=== PATIENT | male | born 1975 | race Caucasian/White ===

== ENCOUNTER 2018-07-12 12:52 | Emergency (ER) | payer BC, OTHER ==
[~2018-07-12] VITALS: Ht 177.8 cm; Wt 113.4 kg
[~2018-07-12 12:52] MED LIST: ALLP100T PO; ASPI325T32 PO; CETI10TA17 PO; DOXY100C42 PO; ESCI20TA2 PO; GMFB600T PO; HYDR1CAP2 PO; OMEG1CAP24 PO; OXYC-12 PO; SULF1TAB35 PO; SULF1TAB38 PO
--- OUTSIDE RECORDS SUMMARY | 2018-07-12 12:57 | XMS REPORT | Continuity of Care Document ---
Author Author [facility] Organization [facility] Address Unknown Phone Unavailable Allergies Active Description Code Type Severity Reaction Onset Reported/Identified Relationship to Patient Clinical Status Yes NO KNOWN DRUG ALLERGIES UNKNOWN NO KNOWN DRUG ALLERG Yes No Known Drug Allergies [id number] Drug Allergy Unknown N/A 01/19/2010 Medications There is no data. 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 Results Test Result Range Thyroid Stimulating Hormone - 11/29/17 10:45 TSH 1.35 mIU/mL 0.32-5.00 Lipid Panel - 11/29/17 10:45 C/HDL 7.5 3.7-6.7 Cholesterol 307 mg/dL 100-240 HDL 41 mg/dL 30-85 LDL-Calculated 201 mg/dL 0-100 Trig 327 mg/dL 35-160 VLDL 65 mg/dL 0-42 Encounters ACCT No. Visit Date/Time Discharge Status Pt. Type Provider Facility Loc./Unit Complaint [id number] 03/25/2014 16:23:00 03/25/2014 18:50:00 DIS Emergency MAITE CHAVEZ [facility] ER POSS SURGICAL INFECTION ON L LEG [id number] 06/17/2012 10:04:00 06/17/2012 23:59:59 CLS Outpatient [id number] 11/29/2017 10:44:00 11/29/2017 23:59:00 DIS Outpatient Louise Sorenson [id number] 11/29/2017 10:39:00 11/29/2017 23:59:00 DIS Outpatient Louise Sorenson
[2018-07-12 13:50] LABS: BILIRUBIN,URINE NEGATIVE (NEGATIVE); CLARITY,URINE CLEAR; COLOR,URINE YELLOW; GLUCOSE, URINE (UA) NEGATIVE (NEGATIVE); KETONES,URINE NEGATIVE (NEGATIVE); LEUKOCYTE ESTERASE ,URINE 1+ (NEGATIVE); NITRITE,URINE NEGATIVE (NEGATIVE); PH,URINE 6 (5-9); PROTEIN,URINE 2+ (NEGATIVE); UROBILINOGEN,URINE NORMAL (NORMAL)
[2018-07-12 13:59] LABS: BACTERIA,URINE NEGATIVE /HPF; SQUAMOUS EPITHELIAL CELL,UR RARE /HPF
[2018-07-12] MEDS ORDERED: ONDANSETRON 4 MG/2 ML (SDV) Z0FRAN IVP ONE (14:00)
[2018-07-12] MEDS ORDERED: NS IV 1000 ML 1,000 ML IV SCH (14:00)
[2018-07-12] MEDS ORDERED: KETOROLAC 30 MG/ML VIAL IVP ONE (14:00)
--- NOTE | 2018-07-12 14:23 | ED GU-Male ---
General Chief Complaint: Abdominal/GI Problems Stated Complaint: KIDNEY STONES History of Present Illness Date Seen by Provider: Jul 12, 2018 Time Seen by Provider: 14:15 Initial Comments 42-year-old male presents for possible left kidney stones. He's had these in the past approximate 5 years ago and required cystoscopy for removal by Dr. Lynn. He reports mild left low back pain. He also has associated nausea , no vomiting. Timing/Duration: this morning Severity/Quality: mild Location: left flank Radiation: none Activities at Onset: none Prior Genitourinary Problems: similar symptoms Associated Symptoms: lower back pain, nausea/vomiting Allergies and Home Medications Allergies Coded Allergies: No Known Drug Allergies (Unverified , 07/12/18) Home Medications Aspirin 325 Mg Tablet.dr, 325 MG PO DAILY, (Reported) Cetirizine Hcl 10 Mg Tablet, 10 MG PO DAILY, (Reported) Ciprofloxacin HCl 500 Mg Tablet, 500 MG PO BID Prescribed by: LARRY TURPIN on 07/12/18 1501 Doxycycline Monohydrate 100 Mg Capsule, 100 MG PO BID Prescribed by: MAITE WRIGHT on 03/25/141821 Escitalopram Oxalate 20 Mg Tablet, 1 EACH PO DAILY, (Reported) Hydrocodone Bit/Acetaminophen 1 Tab Tab, 1-2 EACH PO Q6H PRN for PAIN-MODERATE Prescribed by: LARRY TURPIN on 07/12/18 1501 [place]-3 Fatty Acids/Fish Oil 1 Each Capsule.dr, 1 EACH PO DAILY, (Reported) Oxycodone Hcl/Acetaminophen 1 Each Tablet, 1 EACH PO Q4-6H PRN PRN for PAIN, ( Reported) Sulfamethoxazole/Trimethoprim 1 Each Tablet, 1 TAB PO BID Prescribed by: MAITE WRIGHT on 03/25/141821 Patient Home Medication List Home Medication List Reviewed: Yes Review of Systems Review of Systems Constitutional: no symptoms reported, see HPI Genitourinary: flank pain (left) All Other Systemes Reviewed Negative Unless Noted: Yes Past Drworvd-Hctiod-Mfeocq Hx Past Med/Social Hx: Reviewed Nursing Past Med/Soc Hx Patient Social History Recent Foreign Travel: No Contact w/Someone Who Travel: No Past Medical History Reproductive Disorders: No Sexually Transmitted Disease: No Physical Exam Vital Signs Vital Signs - First Documented 07/12/18 13:35 Temp 98.5 Pulse 77 Resp 16 B/P (MAP) 140/91 (107) Pulse Ox 98 Capillary Refill : Height, Weight, BMI Height: 5'9" Weight: 200lbs. oz. 90.573615zu; BMI Method: General Appearance: WD/WN, no apparent distress Cardiovascular: normal peripheral pulses, regular rate, rhythm Respiratory: chest non-tender, lungs clear, normal breath sounds Gastrointestinal: normal bowel sounds, non tender, soft Back: normal inspection, no vertebral tenderness, CVA tenderness (L) Neurologic/Psychiatric: no motor/sensory deficits, alert, normal mood/affect, oriented x 3 Skin: normal color, warm/dry Progress/Results/Core Measures Suspected Sepsis SIRS Temperature: Pulse: Respiratory Rate: Laboratory Tests 07/12/18 14:43: White Blood Count 11.4H Blood Pressure / Mean: Laboratory Tests 07/12/18 14:43: Creatinine 0.87, Platelet Count 220, Total Bilirubin 1.2H Results/Orders Lab Results Laboratory Tests Test 07/12/18 13:35 07/12/18 14:43 Range/Units Urine Color YELLOW Urine Clarity CLEAR Urine pH 6 5-9 Urine Specific [place] 1.010 L 1.016-1.022 Urine Protein 2+ H NEGATIVE Urine Glucose (UA) NEGATIVE NEGATIVE Urine Ketones NEGATIVE NEGATIVE Urine Nitrite NEGATIVE NEGATIVE Urine Bilirubin NEGATIVE NEGATIVE Urine Urobilinogen NORMAL NORMAL MG/DL Urine Leukocyte Esterase 1+ H NEGATIVE Urine RBC (Auto) 5+ H NEGATIVE Urine RBC 10-25 H /HPF Urine WBC 2-5 /HPF Urine Squamous Epithelial Cells RARE /HPF Urine Crystals NONE /LPF Urine Bacteria NEGATIVE /HPF Urine Casts NONE /LPF Urine Mucus NEGATIVE /LPF Urine Culture Indicated NO White Blood Count 11.4 H 4.3-11.0 10^3/uL Red Blood Count 4.80 4.35-5.85 10^6/uL Hemoglobin 13.9 13.3-17.7 G/DL Hematocrit 40 40-54 % Mean Corpuscular Volume 84 80-99 FL Mean Corpuscular Hemoglobin 29 25-34 PG Mean Corpuscular Hemoglobin Concent 35 32-36 G/DL Red Cell Distribution Width 13.2 10.0-14.5 % Platelet Count 220 130-400 10^3/uL Mean Platelet Volume 8.9 7.4-10.4 FL Neutrophils (%) (Auto) 84 H 42-75 % Lymphocytes (%) (Auto) 10 L 12-44 % Monocytes (%) (Auto) 6 0-12 % Eosinophils (%) (Auto) 0 0-10 % Basophils (%) (Auto) 0 0-10 % Neutrophils # (Auto) 9.5 H 1.8-7.8 X 10^3 Lymphocytes # (Auto) 1.1 1.0-4.0 X 10^3 Monocytes # (Auto) 0.7 0.0-1.0 X 10^3 Eosinophils # (Auto) 0.0 0.0-0.3 10^3/uL Basophils # (Auto) 0.0 0.0-0.1 10^3/uL Sodium Level 137 135-145 MMOL/L Potassium Level 3.9 3.6-5.0 MMOL/L Chloride Level 104 98-107 MMOL/L Carbon Dioxide Level 20 L 21-32 MMOL/L Anion Gap 13 5-14 MMOL/L Blood Urea Nitrogen 13 7-18 MG/DL Creatinine 0.87 0.60-1.30 MG/DL Estimat Glomerular Filtration Rate > 60 BUN/Creatinine Ratio 15 Glucose Level 105 70-105 MG/DL Calcium Level 9.4 8.5-10.1 MG/DL Corrected Calcium 9.1 8.5-10.1 MG/DL Total Bilirubin 1.2 H 0.1-1.0 MG/DL Aspartate Amino Transf (AST/SGOT) 44 H 5-34 U/L Alanine Aminotransferase (ALT/SGPT) 72 H 0-55 U/L Alkaline Phosphatase 52 40-136 U/L Total Protein 7.3 6.4-8.2 GM/DL Albumin 4.4 3.2-4.5 GM/DL My Orders Orders - LARRY TURPIN Ua Culture If Indicated (07/12/18 13:03) Cbc With Automated Diff (07/12/18 14:30) Comprehensive Metabolic Panel (07/12/18 14:30) Medications Given in ED Current Medications Medications Dose Ordered Sig/Yon Route Start Time Stop Time Status Last Admin Dose Admin Ketorolac Tromethamine 30 mg ONCE ONCE IVP 07/12/18 14:00 07/12/18 14:01 DC 07/12/18 13:56 30 MG Ondansetron HCl 4 mg ONCE ONCE IVP 07/12/18 14:00 07/12/18 14:01 DC 11/18/18 13:56 4 MG Vital Signs/I&O 07/12/18 07/12/18 13:35 15:27 Temp 98.5 Pulse 77 76 Resp 16 16 B/P (MAP) 140/91 (107) 136/73 (94) Pulse Ox 98 99 Capillary Refill : Progress Note : Time: 14:15 Progress Note Initial evaluation completed. Zofran 4 mg IV, normal saline 1 L IV, Zofran 30 mg IV for pain. Will obtain UA, CBC and CMP. 1415 patient reports pain to be resolved, no further nausea and vomiting. Discussed patient with Dr. Lang, recommended no indication for x-ray at this time. Will manage conservatively with home precautions and follow-up with urology. 1500 lab results reviewed with patient. Discharge instructions and return precautions discussed. Departure Impression Primary Impression: Urolithiasis Qualified Codes: N21.8 - Other lower urinary tract calculus Disposition: HOME, SELF-CARE Condition: Improved Departure-Patient Inst. Decision time for Depature: 15:00 Referrals: CAROLINA SERRATO MD (PCP/Family) Primary Care Physician Patient Instructions: Kidney Stones (DC) Add. Discharge Instructions: Increase water intake. Take ibuprofen 600 mg every 8 hours. Take hydrocodone as needed every 6 hours for severe pain. Take Cipro as prescribed. Call for follow-up appointment with Dr. Lynn. Return to emergency department for pain not controlled with previously prescribed medications, inability urinate, fever greater than 101, or new problems. All discharge instructions reviewed with patient and/or family. Voiced understanding. Scripts Hydrocodone Bit/Acetaminophen (Hydrocodone/Acetaminophen 5/325mg Tablet) 1 Tab Tab 1-2 EACH PO Q6H PRN for PAIN-MODERATE MDD 10, #20 TAB 0 Refills Prov: LARRY TURPIN 07/12/18 Ciprofloxacin HCl (Cipro) 500 Mg Tablet 500 MG PO BID, #10 TAB 0 Refills Prov: LARRY TURPIN 07/12/18 Copy Copies To 1: THUY LYNN MD, AMY ARNP Jul 12, 2018 14:23
[2018-07-12 14:49] LABS: BASOPHILS % (AUTO) 0 % (0-10); EOSINOPHILS % (AUTO) 0 % (0-10); HEMATOCRIT 40 % (40-54); HEMOGLOBIN 13.9 G/DL (13.3-17.7); LYMPHOCYTES # (AUTO) 1.1 X 10^3 (1.0-4.0); LYMPHOCYTES % (AUTO) 10 % (12-44); MEAN CORPUSCULAR HEMOGLOBIN 29 PG (25-34); MEAN CORPUSCULAR HGB CONC 35 G/DL (32-36); MEAN CORPUSCULAR VOLUME 84 FL (80-99); MEAN PLATELET VOLUME 8.9 FL (7.4-10.4); MONOCYTES # (AUTO) 0.7 X 10^3 (0.0-1.0); MONOCYTES % (AUTO) 6 % (0-12); NEUTROPHILS # (AUTO) 9.5 X 10^3 (1.8-7.8); NEUTROPHILS % (AUTO) 84 % (42-75); PLATELET COUNT 220 10^3/uL (130-400); RED CELL DISTRIBUTION WIDTH 13.2 % (10.0-14.5); WHITE BLOOD COUNT 11.4 10^3/uL (4.3-11.0)
[2018-07-12] MEDS ORDERED: ACHD5005 PO (15:01)
[2018-07-12] MEDS ORDERED: CIPR-225 PO (15:01)
[2018-07-12 15:07] LABS: ALANINE AMINOTRANSFERASE 72 U/L (0-55); ALBUMIN 4.4 GM/DL (3.2-4.5); ALKALINE PHOSPHATASE 52 U/L (40-136); BILIRUBIN,TOTAL 1.2 MG/DL (0.1-1.0); BUN/CREATININE RATIO 15; CALCIUM 9.4 MG/DL (8.5-10.1); CARBON DIOXIDE 20 MMOL/L (21-32); CHLORIDE 104 MMOL/L (98-107); CREATININE SERUM 0.87 MG/DL (0.60-1.30); GFR ESTIMATED > 60; GLUCOSE 105 MG/DL (70-105); POTASSIUM 3.9 MMOL/L (3.6-5.0); SODIUM 137 MMOL/L (135-145); TOTAL PROTEIN 7.3 GM/DL (6.4-8.2)
[2018-07-12 15:27] VITALS: BP 136/73
[2018-07-13] MEDS ORDERED: ATOR40TA PO (15:13)
[2018-07-13] MEDS ORDERED: SERT50TA9 PO (15:13)
[2018-07-13] MEDS ORDERED: CETI10TA17 PO (15:13)
[2018-07-13] MEDS ORDERED: ALLO300T2 PO (15:13)
== END 2018-07-12 15:22 | disposition home or self-care (01) ==
LOC: EDUNIT# 12:52 → ER 12:53
DX: N20.9 Urinary calculus, unspecified (principal); Z79.82 Long term (current) use of aspirin
CPT/HCPCS: 36415; 80053; 81000; 85025

== ENCOUNTER 2018-07-13 14:54 | Outpatient (CLI) | payer BC ==
[~2018-07-13] VITALS: Ht 177.8 cm; Wt 113.4 kg
[~2018-07-13 14:54] MED LIST changes: -ALLO300T2 PO; -ATOR40TA PO; -HYDR-3870 PO; -NITR-65 PO; -SERT50TA9 PO; -TAMS0.4C98 PO
[2018-07-13] MEDS ORDERED: CETI10TA17 PO (15:13)
[2018-07-13] MEDS ORDERED: ALLO300T2 PO (15:13)
[2018-07-13] MEDS ORDERED: ATOR40TA PO (15:13)
[2018-07-13] MEDS ORDERED: SERT50TA9 PO (15:13)
[2018-07-14] MEDS ORDERED: NITR-65 PO (12:49)
[2018-07-14] MEDS ORDERED: HYDR-3870 PO (12:50)
[2018-07-14] MEDS ORDERED: TAMS0.4C98 PO (12:50)
== END 2018-07-13 15:22 | disposition home or self-care (01) ==
LOC: PREOP 14:54
PROVIDERS: ATTEND Urology
DX: Z01.818 Encounter for other preprocedural examination (principal)

== ENCOUNTER → 2018-07-13 | Outpatient (CLI) | payer BC ==
[~2018-07-13] MED LIST changes: +ACHD5005 PO; +ALLO300T2 PO; +ATOR40TA PO; +CIPR-225 PO; +HYDR-3870 PO; +NITR-65 PO; +SERT50TA9 PO; +TAMS0.4C98 PO
--- NOTE | 2018-07-13 10:34 | Diagnostic Imaging Report ---
PROCEDURE: CT urinary tract, rule out kidney stone. TECHNIQUE: Multiple contiguous axial images were obtained through the abdomen and pelvis without the use of intravenous contrast. INDICATION: History of kidney stones, left posterior flank pain. Hematuria. COMPARISON: None. FINDINGS: No focal consolidation is seen in the lung bases. There is calcified granuloma in the lateral right lower lobe. No pleural effusion is seen. There is no pericardial effusion. The heart is normal in size. There is decreased attenuation of the liver, consistent with fatty infiltration. Cholecystectomy clips are noted. The pancreas appears normal. The spleen is normal. The adrenal glands appear normal. There is a large right renal calculus in the right renal collecting system which measures up to 1.6 cm in size. Smaller nonobstructing calculi are seen in the inferior right kidney. There is an obstructing calculus in the proximal left ureter, approximately 4 cm distal to the ureteropelvic junction which measures 6 mm in diameter, and 715 Hounsfield units. There is an irregular projection of this calculus distally in the ureter, or this may represent an additional smaller 4 mm calculus. Multiple nonobstructing calculi are seen in the left kidney, measuring up to 6 mm in size. There is moderate left hydroureteronephrosis with mild fat stranding about the ureter and kidney. No calculi are seen in the urinary bladder. The bowel loops are nondistended without evidence of obstruction. The appendix is normal. There is moderate stool throughout the colon. A few colonic diverticuli are seen. There is no free fluid or free air. No acute osseous abnormality seen. IMPRESSION: 1. Obstructing 6 mm calculus in the proximal left ureter causing moderate hydroureteronephrosis. Multiple additional nonobstructing calculi are seen bilaterally, including a large stone on the right. 2. Fatty infiltration of the liver. Dictated by: Dictated on workstation # [id number]
--- NOTE | 2018-07-13 11:58 | Diagnostic Imaging Report ---
CLINICAL INDICATION: Patient with history of kidney stone. Patient with left posterior pain and hematuria. EXAM: KUB X-ray. COMPARISON: CT scan of the abdomen and pelvis without contrast dated 07/13/2018. FINDINGS: Again seen calcification within a proximal left ureter is seen at the level of the upper L3 vertebral body. This stone was measured at 6 mm on the prior CT study, but is roughly 10 mm in craniocaudal dimension. Again seen nonobstructive stone within the right renal pelvis region measuring at least 16 mm in craniocaudal dimension. There are other stones seen overlying the inferior pole of the left kidney. More stones are seen involving the left kidney which are nonobstructive, on the prior CT scan. Likely phleboliths seen in the right pelvis. There is nonobstructive bowel gas pattern. There is a small to moderate amount of stool seen throughout the colon. Surgical clips are seen overlying the right upper quadrant which could be related to cholecystectomy changes. There is degenerative spurring of the lower thoracic spine. Otherwise, the bones show no significant interval abnormality. IMPRESSION: 1: Again seen bilateral nephrolithiasis. Again seen stone overlying the expected region of the proximal left ureter which is at the L3 vertebral body level. This is best seen on the comparison CT scan. Dictated by: Dictated on workstation # [id number]
== END ==
LOC: RAD 09:51
PROVIDERS: ATTEND Urology
DX: N13.2 Hydronephrosis with renal and ureteral calculous obstruction (principal); K76.0 Fatty (change of) liver, not elsewhere classified
CPT/HCPCS: 74018; 74176

== ENCOUNTER 2018-07-14 08:27 | Day surgery (SDC) | payer BC ==
[~2018-07-14] VITALS: Ht 177.8 cm; Wt 121.1 kg
[~2018-07-14 08:27] MED LIST changes: +ALLO300T2 PO; +ATOR40TA PO; +SERT50TA9 PO
[2018-07-14 08:45] VITALS: BP 143/88
[2018-07-14] MEDS ORDERED: cefTRIAXone FOR IV USE 1,000 MG in NS (IVPB) 50 ML IV ONE (08:45)
--- NOTE | 2018-07-14 08:56 | Diagnostic Imaging Report ---
Indication: Ureteral calculus. KUB 9:09 AM There is a 4 mm calculus projecting over the lower pole of the left kidney. There is an elongated calcification measuring 8 mm in length projecting over the left L3 transverse process in the ureter distribution. There is a 1 cm calcification projecting over the right renal pelvis. Impression: Bilateral nephrolithiasis. Left ureteral calculus. Dictated by: Dictated on workstation # [id number]
--- NOTE | 2018-07-14 08:58 | Progress Note-Pre Operative ---
Pre-Operative Progress Note H&P Reviewed The H&P was reviewed, patient examined and no changes noted. Date Seen by Provider: Jul 14, 2018 Time Seen by Provider: 08:57 Date H&P Reviewed: Jul 14, 2018 Time H&P Reviewed: 08:57 Pre-Operative Diagnosis: LT PROXIMAL URETERAL AND BILATERAL RENAL STONES THUY LYNN MD Jul 14, 2018 8:58 am
[2018-07-14] MEDS ORDERED: CATHETER FLUSH 10 ML SYR IV PRN (09:00)
[2018-07-14] MEDS ORDERED: FAMOTIDINE 20MG/2ML IV (PEPCID) ONE (09:20)
[2018-07-14] MEDS ORDERED: ONDANSETRON 4 MG/2 ML (SDV) Z0FRAN ONE ×2 (09:20→10:38)
[2018-07-14] MEDS ORDERED: ONDANSETRON 4 MG/2 ML (SDV) Z0FRAN IV ONE (09:30)
[2018-07-14] MEDS ORDERED: FAMOTIDINE 20MG/2ML IV (PEPCID) IV ONE (09:30)
[2018-07-14] MEDS: LACTATED RINGERS 1,000 ML IV PRN ×2 (09:40→10:55)
[2018-07-14] MEDS ORDERED: SEVOFLURANE (ULTANE) 15 ML INHAL SOLN ONE ×2 (10:38→11:22)
[2018-07-14] MEDS ORDERED: proPOfol 200 MG/20 ML (DIPRIVAN) VIAL IV ONE (10:38)
[2018-07-14] MEDS ORDERED: fentaNYL INJECTION 100 MCG/2 ML AMP ONE (10:38)
[2018-07-14] MEDS ORDERED: LIDOCAINE PF 2% 5 ML (XYLOCAINE) VIAL ONE (10:38)
[2018-07-14] MEDS ORDERED: MIDAZOLAM 2 MG/2 ML (VERSED) VIAL ONE (10:38)
[2018-07-14] MEDS ORDERED: DEXAMETHASONE 10 MG/ML (DECADRON) 1 ML VIAL ONE (10:38)
--- NOTE | 2018-07-14 11:09 | Progress Note-Post Operative ---
Post-Operative Progess Note Surgeon (s)/Crystal Syrup Maker (s) Surgeon THUY LYNN MD Crystal Syrup Maker: NONE Pre-Operative Diagnosis LT PROXIMAL URETERAL AND BILATERAL RENAL STONES Post-Operative Diagnosis SAME Procedure & Operative Findings Date of Procedure 07/14/18 Procedure Performed/Findings LT ESWL Anesthesia Type GENERAL Estimated Blood Loss Estimated blood loss (mL): NONE Specimens/Packing Specimens Removed NONE Packing: NONE THUY LYNN MD Jul 14, 2018 11:09 am
--- NOTE | 2018-07-14 11:11 | Discharge Inst-Urology ---
Discharge Inst-Urology Discharge Medications New, Converted, or Re-newed RX: RX on Chart Patient Instructions/Follow Up Plan Please make appointment to been seen in office Friday 07/27. KUB prior to it. KUB on way home Post ESWL instructions Increase oral fluids for 48 hours and then as needed. Diet and Activity as tolerated. If questions or concerns contact your physician Or seek help at emergency department. THUY LYNN MD Jul 14, 2018 11:11 am
[2018-07-14] MEDS ORDERED: KETOROLAC 30 MG/ML VIAL ONE (11:22)
[2018-07-14] MEDS ORDERED: FUROSEMIDE 40 MG/4 ML INJ (LASIX) ONE (11:22)
[2018-07-14] MEDS ORDERED: ONDANSETRON 4 MG/2 ML (SDV) Z0FRAN IVP PRN (11:45)
[2018-07-14] MEDS ORDERED: HYDROmorphone 2 MG/ML VIAL (DILAUDID) IV ONE (11:45)
[2018-07-14 12:25] VITALS: BP 137/82
[2018-07-14] MEDS ORDERED: NITR-65 PO (12:49)
[2018-07-14] MEDS ORDERED: TAMS0.4C98 PO (12:50)
[2018-07-14] MEDS ORDERED: HYDR-3870 PO (12:50)
[2018-07-14 12:55] VITALS: BP 126/78
[2018-07-14 13:12] VITALS: BP 137/82
--- NOTE | 2018-07-14 13:29 | Anesthesia-General Post-Op ---
General Patient Condition Mental Status/LOC: Same as Preop Cardiovascular: Satisfactory Nausea/Vomiting: Absent Respiratory: Satisfactory Pain: Controlled Complications: Absent Post Op Complications Complications None Follow Up Care/Instructions Patient Instructions None needed. Anesthesia/Patient Condition Patient Condition Patient is doing well, no complaints, stable vital signs, no apparent adverse anesthesia problems. No complications reported per nursing. CHIP CLIFFORD CRNA Jul 14, 2018 13:29
--- NOTE | 2018-07-14 15:50 | Diagnostic Imaging Report ---
EXAMINATION: Supine abdomen at 01:33 p.m. INDICATION: Nephrolithiasis. FINDINGS: The exam performed earlier today at 09:09 a.m. noted calculi overlying both kidneys as well as an 8.2 mm calculus overlying the left transverse process of L3. On this study, the calculi overlying the kidneys seen previously are again evident and do not appear to have changed significantly. The calculus overlying the left transverse process of L3 has been fragmented. The calculus is essentially unchanged in position. The overall appearance of the abdomen is otherwise stable. IMPRESSION: 1. There has been fragmentation of the calculus overlying the left transverse process of L3. 2. There are still calculi overlying each kidney. Dictated by: Dictated on workstation # [id number]
--- NOTE | 2018-07-14 19:37 | OPERATIVE REPORT ---
DATE OF SERVICE: 07/14/2018 PREOPERATIVE DIAGNOSES: Left proximal ureteral stone and bilateral renal stones. POSTOPERATIVE DIAGNOSIS: Left proximal ureteral stone and bilateral renal stones. OPERATION PERFORMED: Left ESWL. SURGEON: Desmond Lynn MD ANESTHESIA: General. COMPLICATIONS: None. DESCRIPTION OF PROCEDURE: Under satisfactory general anesthesia, the patient in supine position on the ESWL table, the left proximal ureteral stone was localized. Shocks were delivered at kV of 5. A total of 2000 shocks completely fragmented the stone that was hardly visualized. The patient received 40 mg of Lasix and 30 mg of Toradol IV at the end of the procedure. He tolerated the procedure and anesthesia well and was sent to recovery room in stable condition. Job ID: [id number] DocumentID: [id number] Dictated Date: 07/14/2018 11:23:27 Zoning Technician Date: 07/14/2018 19:36:27 Dictated By: DESMOND LYNN MD
== END 2018-07-14 13:20 | disposition home or self-care (01) ==
LOC: SDC 08:27
PROVIDERS: ATTEND Urology
DX: N20.2 Calculus of kidney with calculus of ureter (principal); I10 Essential (primary) hypertension; N40.0 Benign prostatic hyperplasia without lower urinary tract symptoms; Z79.899 Other long term (current) drug therapy
CPT/HCPCS: 74018; 87081

== ENCOUNTER → 2018-07-27 | Outpatient (CLI) | payer BC ==
[~2018-07-27] MED LIST changes: +HYDR-3870 PO; +NITR-65 PO; +TAMS0.4C98 PO
--- NOTE | 2018-07-27 14:44 | Diagnostic Imaging Report ---
INDICATION: Status post left-sided ESWL. COMPARISON: 07/14/2018 FINDINGS: Two supine radiographic views of the abdomen were obtained. There has been interval evacuation of fragmented calculi from the left ureter. Faint nonobstructive calculus is again identified projecting over the lower pole of the left kidney. Larger calculus is also again identified on the right. No unexpected radiopaque foreign bodies are seen. Small bowel loops are nondistended. There is no large collection of free intraperitoneal air. Bony structures show no acute abnormalities. IMPRESSION: 1. Interval evacuation of left ureteral calculi. 2. Persistent bilateral nephrolithiasis. Dictated by: Dictated on workstation # [id number]
== END ==
LOC: RAD 14:14
PROVIDERS: ATTEND Urology
DX: N20.2 Calculus of kidney with calculus of ureter (principal); Z98.890 Other specified postprocedural states
CPT/HCPCS: 74018

== ENCOUNTER 2018-09-01 06:30 | Outpatient (CLI) | payer BC ==
[~2018-09-01] VITALS: Ht 177.8 cm; Wt 121.1 kg
[2018-09-02] MEDS ORDERED: NITR-68 PO ×2 (09:00)
[2018-09-02] MEDS ORDERED: TAMS0.4C98 PO ×2 (09:00)
[2018-09-02] MEDS ORDERED: HYDR-3870 PO ×2 (09:00)
== END 2018-09-01 12:11 | disposition home or self-care (01) ==
LOC: PREOP 06:30
PROVIDERS: ATTEND Urology
DX: Z01.818 Encounter for other preprocedural examination (principal)

== ENCOUNTER 2018-09-02 06:04 | Day surgery (SDC) | payer BC ==
[~2018-09-02] VITALS: Ht 177.8 cm; Wt 121.2 kg
[2018-09-02] MEDS ORDERED: LACTATED RINGERS 1,000 ML IV PRN (06:20)
[2018-09-02 06:30] VITALS: BP 114/73
[2018-09-02] MEDS ORDERED: cefTRIAXone FOR IV USE 1,000 MG in NS (IVPB) 50 ML IV ONE (06:30)
[2018-09-02] MEDS ORDERED: NS (IVPB) 50 ML ONE (06:37)
[2018-09-02] MEDS ORDERED: cefTRIAXone 1 GM/10 ML for IV (ROCEPHIN) ONE (06:37)
[2018-09-02] MEDS ORDERED: proPOfol 200 MG/20 ML (DIPRIVAN) VIAL IV ONE (06:59)
[2018-09-02] MEDS ORDERED: MIDAZOLAM 2 MG/2 ML (VERSED) VIAL ONE (06:59)
[2018-09-02] MEDS ORDERED: fentaNYL INJECTION 100 MCG/2 ML AMP ONE (06:59)
[2018-09-02] MEDS ORDERED: SEVOFLURANE (ULTANE) 15 ML INHAL SOLN ONE ×3 (06:59→07:21)
[2018-09-02] MEDS ORDERED: LIDOCAINE PF 2% 5 ML (XYLOCAINE) VIAL ONE (06:59)
[2018-09-02] MEDS ORDERED: ONDANSETRON 4 MG/2 ML (SDV) Z0FRAN ONE (06:59)
[2018-09-02] MEDS ORDERED: FUROSEMIDE 40 MG/4 ML INJ (LASIX) ONE (07:00)
[2018-09-02] MEDS ORDERED: KETOROLAC 30 MG/ML VIAL ONE (07:00)
--- NOTE | 2018-09-02 07:11 | Progress Note-Pre Operative ---
Pre-Operative Progress Note H&P Reviewed The H&P was reviewed, patient examined and no changes noted. Date Seen by Provider: Sep 02, 2018 Time Seen by Provider: 07:11 Date H&P Reviewed: Sep 02, 2018 Time H&P Reviewed: 07:11 Pre-Operative Diagnosis: BILATERAL RENAL STONES THUY LYNN MD Sep 02, 2018 07:11
--- NOTE | 2018-09-02 07:24 | Progress Note-Post Operative ---
Post-Operative Progess Note Surgeon (s)/Flakeboard Line Tender (s) Surgeon THUY LYNN MD Flakeboard Line Tender: NONE Pre-Operative Diagnosis BILATERAL RENAL STONES Post-Operative Diagnosis SAME Procedure & Operative Findings Date of Procedure 09/02/18 Procedure Performed/Findings RT ESWL Anesthesia Type GENERAL Estimated Blood Loss Estimated blood loss (mL): NONE Specimens/Packing Specimens Removed NONE Packing: NONE THUY LYNN MD Sep 02, 2018 07:24
--- NOTE | 2018-09-02 07:26 | Discharge Inst-Urology ---
Discharge Inst-Urology Discharge Medications New, Converted, or Re-newed RX: RX on Chart Patient Instructions/Follow Up Plan Please make appointment to been seen in office Thursday 09/07. KUB prior to it Post ESWL instructions KUB on way home Increase oral fluids for 48 hours and then as needed. Diet and Activity as tolerated. If questions or concerns contact your physician Or seek help at emergency department. THUY LYNN MD Sep 02, 2018 07:26
[2018-09-02] MEDS ORDERED: MEPERIDINE (DEMEROL) INJ 50 MG/ML IVP ONE (08:00)
[2018-09-02] MEDS ORDERED: PROMETHAZINE INJ 25 MG/ML (PHENERGAN) AMP IVP ONE (08:00)
[2018-09-02] MEDS ORDERED: ONDANSETRON 4 MG/2 ML (SDV) Z0FRAN IVP PRN (08:00)
[2018-09-02] MEDS ORDERED: morphine INJ 10 MG/ML 1ML (SYR OR VIAL) IVP ONE (08:00)
--- NOTE | 2018-09-02 08:26 | Diagnostic Imaging Report ---
Indication: Nephrolithiasis KUB 7:15 AM There is a 15 mm calculus projecting over the right renal pelvis. There is a 3 mm calculus projecting over the left renal pelvis and a 2 mm calculus projecting over the upper pole of the left kidney. There is a calcification 5 mm in length projecting over the distal left ureter near the ureterovesical junction that could be a ureteral calculus. There are 2 small calcified phleboliths in the right pelvic floor. Impression: Bilateral nephrolithiasis. Possible left ureterolithiasis. Dictated by: Dictated on workstation # [id number]
[2018-09-02 08:50] VITALS: BP 139/90
--- NOTE | 2018-09-02 08:50 | NUR ---
TO AMB SURG FROM PAR PER CART. ALERT,DENIES COMPLAINTS, PO FLUIDS PROVIDED.
[2018-09-02] MEDS ORDERED: TAMS0.4C98 PO ×2 (09:00)
[2018-09-02] MEDS ORDERED: NITR-68 PO ×2 (09:00)
[2018-09-02] MEDS ORDERED: HYDR-3870 PO ×2 (09:00)
--- NOTE | 2018-09-02 09:00 | NUR ---
VOIDED 800 CC CLEAR, DULL RED URINE WITHOUT DIFFICULTY. URINE STRAINED, NO STONE PARTICLES OBTAINED.
[2018-09-02 09:20] VITALS: BP 127/83
--- NOTE | 2018-09-02 09:40 | Diagnostic Imaging Report ---
Indication: Nephrolithiasis KUB 9:53 AM The stone in the right renal pelvis appears to be fragmented. Left calculus and density at the left ureteral unchanged. Impression: There's been interval fragmentation of right renal calculus. Dictated by: Dictated on workstation # [id number]
[2018-09-02 09:50] VITALS: BP 140/87
--- NOTE | 2018-09-02 09:50 | Anesthesia-General Post-Op ---
General Patient Condition Mental Status/LOC: Same as Preop Cardiovascular: Satisfactory Nausea/Vomiting: Absent Respiratory: Satisfactory Pain: Controlled Complications: Absent Post Op Complications Complications None Follow Up Care/Instructions Patient Instructions None needed. Anesthesia/Patient Condition Patient Condition Patient is doing well, no complaints, stable vital signs, no apparent adverse anesthesia problems. No complications reported per nursing. LAURA AUSTIN CRNA Sep 02, 2018 09:50
[2018-09-02 09:55] VITALS: BP 140/87
--- NOTE | 2018-09-02 09:55 | NUR ---
VOIDED ADDITIONAL 500 CC CLEAR, LIGHT PINK URINE, STRAINED, NO STONE PARTICLES PASSED. DENIES COMPLAINTS, ALERT AND CHEERFUL.
--- NOTE | 2018-09-02 11:53 | OPERATIVE REPORT ---
DATE OF SERVICE: 09/02/2018 PREOPERATIVE DIAGNOSIS: Bilateral renal stones. POSTOPERATIVE DIAGNOSIS: Bilateral renal stones. OPERATION PERFORMED: Right ESWL. SURGEON: Desmond Lynn MD. ANESTHESIA: General. COMPLICATIONS: None. DESCRIPTION OF PROCEDURE: Under satisfactory general anesthesia, the patient in supine position on the ESWL table, the right renal stone was localized. Shocks were delivered at a kV of 4. Total of 2500 shocks completely fragmented the stone that was hardly visualized. The patient received 20 mg of Lasix and 40 mg of Toradol IV at the end of the procedure. He tolerated the procedure and anesthesia well and was sent to recovery room in stable condition. PLAN: We will see him next Friday and see if he needs another ESWL on either site. Job ID: [id number] DocumentID: [id number] Dictated Date: 09/02/2018 07:41:17 Inspector Machine Cut Glass Date: 09/02/2018 11:53:09 Dictated By: DESMOND LYNN MD
== END 2018-09-02 09:55 | disposition home or self-care (01) ==
LOC: SDC 06:04
PROVIDERS: ATTEND Urology
DX: N20.0 Calculus of kidney (principal); Z11.2 Encounter for screening for other bacterial diseases; I10 Essential (primary) hypertension; E78.5 Hyperlipidemia, unspecified; F32.9 Major depressive disorder, single episode, unspecified; N40.0 Benign prostatic hyperplasia without lower urinary tract symptoms; Z79.899 Other long term (current) drug therapy
CPT/HCPCS: 74018; 87081

== ENCOUNTER 2018-09-04 12:33 | Emergency (ER) | payer BC ==
[~2018-09-04] VITALS: Ht 177.8 cm; Wt 120.2 kg
[~2018-09-04 12:33] MED LIST changes: +NITR-68 PO
--- OUTSIDE RECORDS SUMMARY | 2018-09-04 12:40 | XMS REPORT | Continuity of Care Document ---
Author Author [facility] Organization [facility] Address Unknown Phone Unavailable Allergies Active Description Code Type Severity Reaction Onset Reported/Identified Relationship to Patient Clinical Status Yes NO KNOWN DRUG ALLERGIES UNKNOWN NO KNOWN DRUG ALLERG Yes No Known Drug Allergies [id number] Drug Allergy Unknown N/A 07/13/2018 Medications There is no data. 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 11/29/2017 Delta Louise A 272.4 OTHER AND UNSPECIFIED HYPERLIPIDEMIA 11/29/2017 Delta, Louise W 296.90 UNSPECIFIED EPISODIC MOOD DISORDER 11/29/2017 Delta, Lousie A E78.5 HYPERLIPIDEMIA, UNSPECIFIED 11/29/2017 Delta, Louise W F39 UNSPECIFIED MOOD [AFFECTIVE] DISORDER 07/12/2018 DYANA, LARRY DATA PROCESSING CONSULTANT Ot M54.5 LOW BACK PAIN 07/12/2018 DYANA, LARRY DATA PROCESSING CONSULTANT Ot N20.9 URINARY CALCULUS, UNSPECIFIED 07/12/2018 DYANA, LARRY DATA PROCESSING CONSULTANT Ot 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 07/14/2018 DYANA, LARRY DATA PROCESSING CONSULTANT Ot M54.5 LOW BACK PAIN 07/14/2018 DYANA, LARRY DATA PROCESSING CONSULTANT Ot N20.9 URINARY CALCULUS, UNSPECIFIED 07/14/2018 DYANA, LARRY DATA PROCESSING CONSULTANT Ot Z79.82 USP (CURRENT) USE OF ASPIRIN 07/14/2018 LEAHTHUY ESPOSITO MD, Ot I10 ESSENTIAL (PRIMARY) HYPERTENSION 07/14/2018 THUY LYNN MD Ot N20.2 CALCULUS OF KIDNEY WITH CALCULUS OF URET 07/14/2018 THUY LYNN MD Ot N40.0 BENIGN PROSTATIC HYPERPLASIA WITHOUT LOW 07/14/2018 THUY LYNN MD, Ot Z79.899 OTHER USP (CURRENT) DRUG THERAPY 07/15/2018 THUY LYNN MD Ot I10 ESSENTIAL (PRIMARY) HYPERTENSION 07/15/2018 THUY LYNN MD, Ot N20.2 CALCULUS OF KIDNEY WITH CALCULUS OF URET 07/15/2018 THUY LYNN MD Ot N40.0 BENIGN PROSTATIC HYPERPLASIA WITHOUT LOW 07/15/2018 THUY YLNN MD, Ot Z79.899 OTHER USP (CURRENT) DRUG THERAPY 07/15/2018 THUY LYNN MD Ot I10 ESSENTIAL (PRIMARY) HYPERTENSION 07/15/2018 THUY LYNN MD Ot N20.2 CALCULUS OF KIDNEY WITH CALCULUS OF URET 07/15/2018 THUY LYNN MD, Ot N40.0 BENIGN PROSTATIC HYPERPLASIA WITHOUT LOW 07/15/2018 THUY LYNN MD, Ot Z79.899 OTHER USP (CURRENT) DRUG THERAPY 07/28/2018 THUY LYNN MD, Ot N20.2 CALCULUS OF KIDNEY WITH CALCULUS OF URET 07/28/2018 THUY LYNN MD, Ot Z98.890 OTHER SPECIFIED POSTPROCEDURAL STATES 07/30/2018 THUY LYNN MD, Ot K76.0 FATTY (CHANGE OF) LIVER, NOT ELSEWHERE C 07/30/2018 THUY LYNN MD, Ot N13.2 HYDRONEPHROSIS WITH RENAL AND URETERAL C Procedures There is no data. Results Test Result Range Thyroid Stimulating Hormone - 11/29/17 10:45 TSH 1.35 mIU/mL 0.32-5.00 Lipid Panel - 11/29/17 10:45 C/HDL 7.5 3.7-6.7 Cholesterol 307 mg/dL 100-240 HDL 41 mg/dL 30-85 LDL-Calculated 201 mg/dL 0-100 Trig 327 mg/dL 35-160 VLDL 65 mg/dL 0-42 Complete urinalysis with reflex to culture - 07/12/18 13:35 Urine color determination YELLOW NRG Urine clarity determination CLEAR NRG Urine pH measurement by test strip 6 5-9 Specific gravity of urine by test strip 1.010 1.016- 1.022 Urine protein assay by test strip, semi-quantitative 2+ NEGATIVE Urine glucose detection by automated test strip NEGATIVE NEGATIVE Erythrocytes detection in urine sediment by light microscopy 5+ NEGATIVE Urine ketones detection by automated test strip NEGATIVE NEGATIVE Urine nitrite detection by test strip NEGATIVE NEGATIVE Urine total bilirubin detection by test strip NEGATIVE NEGATIVE Urine urobilinogen measurement by automated test strip (mass/volume) NORMAL NORMAL Urine leukocyte esterase detection by dipstick 1+ NEGATIVE Automated urine sediment erythrocyte count by microscopy (number/high power field) [HPF] NRG Automated urine sediment leukocyte count by microscopy (number/high power field ) [HPF] NRG Bacteria detection in urine sediment by light microscopy NEGATIVE NRG Squamous epithelial cells detection in urine sediment by light microscopy RARE NRG Crystals detection in urine sediment by light microscopy NONE NRG Casts detection in urine sediment by light microscopy NONE NRG Mucus detection in urine sediment by light microscopy NEGATIVE NRG Complete urinalysis with reflex to culture NO NRG Complete blood count (CBC) with automated white blood cell (WBC) differential - 07/12/18 14:43 Blood leukocytes automated count (number/volume) 11.4 10*3/uL 4.3-11.0 Blood erythrocytes automated count (number/volume) 4.80 10*6/uL 4.35-5.85 Venous blood hemoglobin measurement (mass/volume) 13.9 g/dL 13.3-17.7 Blood hematocrit (volume fraction) 40 % 40-54 Automated erythrocyte mean corpuscular volume 84 [foz_us] 80-99 Automated erythrocyte mean corpuscular hemoglobin (mass per erythrocyte) 29 pg 25-34 Automated erythrocyte mean corpuscular hemoglobin concentration measurement ( mass/volume) 35 g/dL 32-36 Automated erythrocyte distribution width ratio 13.2 % 10.0-14.5 Automated blood platelet count (count/volume) 220 10*3/uL 130-400 Automated blood platelet mean volume measurement 8.9 [foz_us] 7.4-10.4 Automated blood neutrophils/100 leukocytes 84 % 42-75 Automated blood lymphocytes/100 leukocytes 10 % 12-44 Blood monocytes/100 leukocytes 6 % 0-12 Automated blood eosinophils/100 leukocytes 0 % 0-10 Automated blood basophils/100 leukocytes 0 % 0-10 Blood neutrophils automated count (number/volume) 9.5 10*3 1.8-7.8 Blood lymphocytes automated count (number/volume) 1.1 10*3 1.0-4.0 Blood monocytes automated count (number/volume) 0.7 10*3 0.0-1.0 Automated eosinophil count 0.0 10*3/uL 0.0-0.3 Automated blood basophil count (count/volume) 0.0 10*3/uL 0.0-0.1 Comprehensive metabolic panel - 07/12/18 14:43 Serum or plasma sodium measurement (moles/volume) 137 mmol/L 135-145 Serum or plasma potassium measurement (moles/volume) 3.9 mmol/L 3.6-5.0 Serum or plasma chloride measurement (moles/volume) 104 mmol/L 98-107 Carbon dioxide 20 mmol/L 21-32 Serum or plasma anion gap determination (moles/volume) 13 mmol/L 5-14 Serum or plasma urea nitrogen measurement (mass/volume) 13 mg/dL 7-18 Serum or plasma creatinine measurement (mass/volume) 0.87 mg/dL 0.60-1.30 Serum or plasma urea nitrogen/creatinine mass ratio 15 NRG Serum or plasma creatinine measurement with calculation of estimated glomerular filtration rate > NRG Serum or plasma glucose measurement (mass/volume) 105 mg/dL 70-105 Serum or plasma calcium measurement (mass/volume) 9.4 mg/dL 8.5-10.1 Serum or plasma total bilirubin measurement (mass/volume) 1.2 mg/dL 0.1-1.0 Serum or plasma alkaline phosphatase measurement (enzymatic activity/volume) 52 U/L 40-136 Serum or plasma aspartate aminotransferase measurement (enzymatic activity/ volume) 44 U/L 5-34 Serum or plasma alanine aminotransferase measurement (enzymatic activity/volume ) 72 U/L 0-55 Serum or plasma protein measurement (mass/volume) 7.3 g/dL 6.4-8.2 Serum or plasma albumin measurement (mass/volume) 4.4 g/dL 3.2-4.5 CALCIUM CORRECTED 9.1 mg/dL 8.5-10.1 Methicillin resistant Staphylococcus aureus (MRSA) screening culture - 08:35 Methicillin resistant Staphylococcus aureus (MRSA) screening culture NEG NRG Methicillin resistant Staphylococcus aureus (MRSA) screening culture - 06:30 Methicillin resistant Staphylococcus aureus (MRSA) screening culture NEG NRG Encounters ACCT No. Visit Date/Time Discharge Status Pt. Type Provider Facility Loc./Unit Complaint [id number] 09/02/2018 06:04:00 09/02/2018 09:55:00 [facility] [id number] 09/01/2018 06:30:00 09/01/2018 12:11:00 DIS Outpatient THUY LYNN MD [facility] PREOP BILATERAL RENAL STONE [id number] 07/27/2018 14:14:00 07/27/2018 23:59:59 CLS Outpatient THUY LYNN MD [facility] RAD URETERAL STONE [id number] 07/14/2018 08:27:00 07/14/2018 13:20:00 DIS [facility]IM[facility]AL STONE [id number] 07/13/2018 09:51:00 07/13/2018 23:59:59 CLS Outpatient THUY LYNN MD [facility] RAD HISTORY OF STONES/UTI [id number] 07/13/2018 14:54:00 07/13/2018 15:22:00 DIS Outpatient THUY LYNN MD [facility] PREOP LEFT PROXIMAL URETERAL STONE [id number] 07/12/2018 12:53:00 07/12/2018 15:22:00 DIS Emergency LARRY TURPIN [facility] ER KIDNEY STONES [id number] 03/25/2014 16:23:00 03/25/2014 18:50:00 DIS Emergency MAITE CHAVEZ [facility] ER POSS SURGICAL INFECTION ON L LEG [id number] 06/17/2012 10:04:00 06/17/2012 23:59:59 CLS Outpatient [id number] 11/29/2017 10:44:00 11/29/2017 23:59:00 DIS Outpatient Louise Sorenson [id number] 11/29/2017 10:39:00 11/29/2017 23:59:00 DIS Outpatient Louise Sorenson
[2018-09-04] MEDS ORDERED: KETOROLAC 30 MG/ML VIAL IVP ONE (12:45)
[2018-09-04] MEDS ORDERED: NS IV 1000 ML 1,000 ML ONE (12:50)
[2018-09-04] MEDS ORDERED: ONDANSETRON 4 MG/2 ML (SDV) Z0FRAN ONE (12:50)
--- NOTE | 2018-09-04 12:59 | ED GU-Male ---
General Stated Complaint: RIGHT FLANK PAIN Source: patient Exam Limitations: no limitations History of Present Illness Date Seen by Provider: Sep 04, 2018 Time Seen by Provider: 12:57 Initial Comments To ER per private vehicle with reports of right flank pain nausea vomiting and chills. He had lithotripsy done on Friday09/02/[address] Lorena moya. About 9: 00 last night he developed intense pain in the right flank nausea and chills. He 's been unable to keep down his hydrocodone due to the pain and vomiting. Timing/Duration: constant, getting worse Severity/Quality: severe Location: right flank Radiation: none Activities at Onset: none Prior Genitourinary Problems: none Associated Symptoms: dysuria Allergies and Home Medications Allergies Coded Allergies: No Known Drug Allergies (Unverified , 07/13/18) Home Medications Allopurinol 300 Mg Tablet, 300 MG PO DAILY, (Reported) Atorvastatin Calcium 40 Mg Tablet, 40 MG PO DAILY, (Reported) Cetirizine HCl 10 Mg Tablet, 10 MG PO DAILY, (Reported) Hydrocodone/Acetaminophen 1 Each Tablet, 1-2 EACH PO Q6H PRN for PAIN-MODERATE Prescribed by: MICAELA QUINONEZ on 09/02/18 0900 Ketorolac Tromethamine 10 Mg Tablet, 10 MG PO Q8H PRN for PAIN-MODERATE TO SEVERE Prescribed by: CJ GRUBBS on 09/04/18 1337 Nitrofurantoin Macrocrystal 100 Mg Capsule, 100 MG PO BID WITH MEALS Prescribed by: MICAELA QUINONEZ on 09/02/18 0900 Sertraline HCl 50 Mg Tablet, 50 MG PO DAILY, (Reported) Tamsulosin HCl 0.4 Mg Cap, 0.4 MG PO DAILY Prescribed by: MICAELA QUINONEZ on 09/02/18 0900 Patient Home Medication List Home Medication List Reviewed: Yes Review of Systems Review of Systems Constitutional: see HPI, chills; No fever EENTM: see HPI Respiratory: no symptoms reported Cardiovascular: no symptoms reported Gastrointestinal: abdominal pain, nausea, vomiting Genitourinary: see HPI Musculoskeletal: no symptoms reported Skin: no symptoms reported Psychiatric/Neurological: No Symptoms Reported Endocrine: No Symptoms Reported Past Cibvyag-Rpqakv-Dwevqt Hx Patient Social History Alcohol Beverage of Choice: Beer, Wine 2nd Hand Smoke Exposure: No Recent Foreign Travel: No Contact w/Someone Who Travel: No Recent Hopitalizations: No Immunizations Up To Date Date of Influenza Vaccine: May 25, 2017 Seasonal Allergies Seasonal Allergies: Yes Past Medical History Surgeries: Yes (DENTAL, ACL L KNEE,lithrotripsy) Gallbladder, Orthopedic Respiratory: No Cardiac: Yes High Cholesterol Neurological: No Reproductive Disorders: No Sexually Transmitted Disease: No HIV/AIDS: No Genitourinary: Yes Kidney Stones Gastrointestinal: No Musculoskeletal: Yes Arthritis, Gout Endocrine: No HEENT: No Loss of Vision: Bilateral Hearing Impairment: Denies Cancer: No Psychosocial: Yes Anxiety Integumentary: No Blood Disorders: No Adverse Reaction/Blood Tranf: No (N/A) Physical Exam Vital Signs Vital Signs - First Documented 09/04/18 12:45 Temp 98.3 Pulse 73 Resp 13 B/P (MAP) 170/90 (116) Pulse Ox 93 O2 Delivery Room Air Capillary Refill : Height, Weight, BMI Height: 5'10.00" Weight: 267lbs. 4.0oz. 121.254568jn; 38.4 BMI Method:Stated General Appearance: WD/WN, mild distress HEENT: PERRL/EOMI, normal ENT inspection Neck: non-tender, full range of motion Respiratory: normal breath sounds, no respiratory distress, no accessory muscle use Gastrointestinal: normal bowel sounds, non tender, soft Extremities: normal range of motion, non-tender Neurologic/Psychiatric: alert, normal mood/affect, oriented x 3 Skin: normal color, warm/dry Progress/Results/Core Measures Suspected Sepsis SIRS Temperature: Pulse: Respiratory Rate: Laboratory Tests 09/04/18 12:50: White Blood Count 10.9 Blood Pressure / Mean: Laboratory Tests 09/04/18 12:50: Creatinine 1.16, Platelet Count 257, Total Bilirubin 1.1H Results/Orders Lab Results Laboratory Tests Test 09/04/18 12:46 09/04/18 12:50 Range/Units Urine Color YELLOW Urine Clarity CLEAR Urine pH 7 5-9 Urine Specific [place] 1.010 L 1.016-1.022 Urine Protein 2+ H NEGATIVE Urine Glucose (UA) NEGATIVE NEGATIVE Urine Ketones NEGATIVE NEGATIVE Urine Nitrite NEGATIVE NEGATIVE Urine Bilirubin NEGATIVE NEGATIVE Urine Urobilinogen NORMAL NORMAL MG/DL Urine Leukocyte Esterase 1+ H NEGATIVE Urine RBC (Auto) 5+ H NEGATIVE Urine RBC 50-100 H /HPF Urine WBC RARE /HPF Urine Squamous Epithelial Cells NONE /HPF Urine Crystals NONE /LPF Urine Bacteria NEGATIVE /HPF Urine Casts NONE /LPF Urine Mucus NEGATIVE /LPF Urine Culture Indicated NO White Blood Count 10.9 4.3-11.0 10^3/uL Red Blood Count 4.95 4.35-5.85 10^6/uL Hemoglobin 14.5 13.3-17.7 G/DL Hematocrit 41 40-54 % Mean Corpuscular Volume 82 80-99 FL Mean Corpuscular Hemoglobin 29 25-34 PG Mean Corpuscular Hemoglobin Concent 36 32-36 G/DL Red Cell Distribution Width 13.0 10.0-14.5 % Platelet Count 257 130-400 10^3/uL Mean Platelet Volume 9.3 7.4-10.4 FL Neutrophils (%) (Auto) 78 H 42-75 % Lymphocytes (%) (Auto) 14 12-44 % Monocytes (%) (Auto) 8 0-12 % Eosinophils (%) (Auto) 0 0-10 % Basophils (%) (Auto) 0 0-10 % Neutrophils # (Auto) 8.5 H 1.8-7.8 X 10^3 Lymphocytes # (Auto) 1.5 1.0-4.0 X 10^3 Monocytes # (Auto) 0.8 0.0-1.0 X 10^3 Eosinophils # (Auto) 0.0 0.0-0.3 10^3/uL Basophils # (Auto) 0.0 0.0-0.1 10^3/uL Sodium Level 138 135-145 MMOL/L Potassium Level 4.1 3.6-5.0 MMOL/L Chloride Level 101 98-107 MMOL/L Carbon Dioxide Level 23 21-32 MMOL/L Anion Gap 14 5-14 MMOL/L Blood Urea Nitrogen 15 7-18 MG/DL Creatinine 1.16 0.60-1.30 MG/DL Estimat Glomerular Filtration Rate > 60 BUN/Creatinine Ratio 13 Glucose Level 125 H 70-105 MG/DL Calcium Level 9.4 8.5-10.1 MG/DL Corrected Calcium 9.1 8.5-10.1 MG/DL Total Bilirubin 1.1 H 0.1-1.0 MG/DL Aspartate Amino Transf (AST/SGOT) 64 H 5-34 U/L Alanine Aminotransferase (ALT/SGPT) 90 H 0-55 U/L Alkaline Phosphatase 67 40-136 U/L Total Protein 7.9 6.4-8.2 GM/DL Albumin 4.4 3.2-4.5 GM/DL My Orders Orders - CJ GRUBBS APRN Cbc With Automated Diff (09/04/18 12:37) Comprehensive Metabolic Panel (09/04/18 12:37) Ua Culture If Indicated (09/04/18 12:37) Iv Heplock-Insert (Order) (09/04/18 12:37) Ketorolac Injection (Toradol Injection) (09/04/18 12:45) Ondansetron Injection (Zofran Injectio (09/04/18 12:50) Ns Iv 1000 Ml (Sodium Chloride 0.9%) (09/04/18 12:50) Abdomen/Kub 1view (09/04/18 12:55) Ns Iv 1000 Ml (Sodium Chloride 0.9%) (09/04/18 13:00) Ondansetron Injection (Zofran Injectio (09/04/18 13:00) Oxycodone/Apap 5/325mg Tablet (Percocet (09/04/18 13:30) Rocephin 1 Gm Iv (1 X Dose) (09/04/18 14:00) Medications Given in ED Current Medications Medications Dose Ordered Sig/Yon Route Start Time Stop Time Status Last Admin Dose Admin Ketorolac Tromethamine 15 mg ONCE ONCE IVP 09/04/18 12:45 09/04/18 12:46 DC 09/04/18 12:57 15 MG Ondansetron HCl 4 mg STK-MED ONCE .ROUTE 09/04/18 12:50 09/04/18 12:55 DC 09/04/18 12:57 8 MG Oxycodone/ Acetaminophen 1 tab ONCE ONCE PO 09/04/18 13:30 09/04/18 13:31 DC 09/04/18 13:34 1 TAB Sodium Chloride 1,000 ml @ ud STK-MED ONCE .ROUTE 09/04/18 12:50 09/04/18 12:55 DC 09/04/18 12:56 1,000 MLS/HR Vital Signs/I&O 09/04/18 12:45 Temp 98.3 Pulse 73 Resp 13 B/P (MAP) 170/90 (116) Pulse Ox 93 O2 Delivery Room Air Capillary Refill : Departure Communication (Admissions) 1316-pain is rated a 3 out of 10 currently after 15 mg of Toradol. It was initially 9 out of 10 on arrival 1334-pain remains at about a 3 out of 10. Discussed his elevated liver enzymes with him and he states that she is been told previously that he does have elevated liver enzymes. When he had his gallbladder removed he was told that he had fatty liver. Impression Primary Impression: Right ureteral stone Disposition: HOME, SELF-CARE Condition: Stable Departure-Patient Inst. Decision time for Depature: 13:35 Referrals: NAZARIO LOTT MD (PCP/Family) Primary Care Physician Patient Instructions: Kidney Stones in Adults Add. Discharge Instructions: 1. Medication as directed. Return to ER for any concerns 2. Follow-up with your doctor next week. Scripts Ondansetron (Ondansetron Odt) 8 Mg Tab.rapdis 8 MG PO Q6H, #10 TAB Prov: CJ GRUBBS CHAIR MECHANIC 09/04/18 Ketorolac Tromethamine (Ketorolac Tromethamine) 10 Mg Tablet 10 MG PO Q8H PRN for PAIN-MODERATE TO SEVERE, #14 TAB Prov: CJ GRUBBS CHAIR MECHANIC 09/04/18 CJ GRUBBS CHAIR MECHANIC Sep 04, 2018 12:59
[2018-09-04] MEDS ORDERED: ONDANSETRON 4 MG/2 ML (SDV) Z0FRAN IVP ONE (13:00)
[2018-09-04] MEDS ORDERED: NS IV 1000 ML 1,000 ML IV SCH (13:00)
[2018-09-04 13:09] LABS: BASOPHILS % (AUTO) 0 % (0-10); EOSINOPHILS % (AUTO) 0 % (0-10); HEMATOCRIT 41 % (40-54); HEMOGLOBIN 14.5 G/DL (13.3-17.7); LYMPHOCYTES # (AUTO) 1.5 X 10^3 (1.0-4.0); LYMPHOCYTES % (AUTO) 14 % (12-44); MEAN CORPUSCULAR HEMOGLOBIN 29 PG (25-34); MEAN CORPUSCULAR HGB CONC 36 G/DL (32-36); MEAN CORPUSCULAR VOLUME 82 FL (80-99); MEAN PLATELET VOLUME 9.3 FL (7.4-10.4); MONOCYTES # (AUTO) 0.8 X 10^3 (0.0-1.0); MONOCYTES % (AUTO) 8 % (0-12); NEUTROPHILS # (AUTO) 8.5 X 10^3 (1.8-7.8); NEUTROPHILS % (AUTO) 78 % (42-75); PLATELET COUNT 257 10^3/uL (130-400); RED BLOOD COUNT 4.95 10^6/uL (4.35-5.85); WHITE BLOOD COUNT 10.9 10^3/uL (4.3-11.0)
[2018-09-04 13:10] LABS: BILIRUBIN,URINE NEGATIVE (NEGATIVE); CLARITY,URINE CLEAR; COLOR,URINE YELLOW; GLUCOSE, URINE (UA) NEGATIVE (NEGATIVE); KETONES,URINE NEGATIVE (NEGATIVE); LEUKOCYTE ESTERASE ,URINE 1+ (NEGATIVE); NITRITE,URINE NEGATIVE (NEGATIVE); PH,URINE 7 (5-9); PROTEIN,URINE 2+ (NEGATIVE); UROBILINOGEN,URINE NORMAL (NORMAL)
--- NOTE | 2018-09-04 13:14 | NUR ---
Pt reports pain has decreased to 3/10 at this time.
[2018-09-04 13:23] LABS: BACTERIA,URINE NEGATIVE /HPF; RBC,URINE 50-100 /HPF; WBC,URINE RARE /HPF
[2018-09-04 13:29] LABS: ALANINE AMINOTRANSFERASE 90 U/L (0-55); ALBUMIN 4.4 GM/DL (3.2-4.5); ALKALINE PHOSPHATASE 67 U/L (40-136); BILIRUBIN,TOTAL 1.1 MG/DL (0.1-1.0); BUN/CREATININE RATIO 13; CALCIUM 9.4 MG/DL (8.5-10.1); CARBON DIOXIDE 23 MMOL/L (21-32); CHLORIDE 101 MMOL/L (98-107); CREATININE SERUM 1.16 MG/DL (0.60-1.30); GFR ESTIMATED > 60; GLUCOSE 125 MG/DL (70-105); POTASSIUM 4.1 MMOL/L (3.6-5.0); SODIUM 138 MMOL/L (135-145); TOTAL PROTEIN 7.9 GM/DL (6.4-8.2)
[2018-09-04] MEDS ORDERED: oxyCODONE/APAP 5/325MG (PERCOCET 5) TABLET PO ONE (13:30)
[2018-09-04] MEDS ORDERED: KETO10TA PO (13:37)
--- NOTE | 2018-09-04 13:47 | Diagnostic Imaging Report ---
Indication: Right flank pain. Patient underwent lithotripsy approximately one month ago. Time of exam: 1:44 PM Correlation is made with recent study from 09/02/2018. Fragmented calculi noted on recent study of the right renal pelvis are not well seen on today's study. There are some calcific densities more medially located adjacent to the right transverse process of L2, suggestive of ureteral calculi. Calcific densities in the left abdomen are also noted which may represent a renal calculi. There is a larger calculus now located in the right pelvis in the region of the distal right ureter which was not present on study 2 days earlier and is suggestive of distal ureteral calculus. Impression: There are findings suggestive of calculi in the proximal and distal right ureter. CT urinary tract study can be performed for further evaluation if clinically indicated. Dictated by: Dictated on workstation # [id number]
[2018-09-04] MEDS ORDERED: ONDA8TAB13 PO (13:54)
[2018-09-04] MEDS ORDERED: cefTRIAXone FOR IV USE 1,000 MG in NS (IVPB) 50 ML IV ONE (14:00)
[2018-09-04 14:30] VITALS: BP 164/92
[2018-09-07] MEDS ORDERED: ALLO100T PO (10:55)
[2018-09-07] MEDS ORDERED: OMEG-105 PO (11:00)
== END 2018-09-04 14:30 | disposition home or self-care (01) ==
LOC: EDUNIT# 12:33 → ER 12:36
DX: N20.1 Calculus of ureter (principal); E78.00 Pure hypercholesterolemia, unspecified; M10.9 Gout, unspecified; F41.9 Anxiety disorder, unspecified; Z98.890 Other specified postprocedural states; Z87.442 Personal history of urinary calculi
CPT/HCPCS: 36415; 74018; 80053; 81000; 85025

== ENCOUNTER 2018-09-06 10:38 | Inpatient (IN) | payer BC | END 2018-09-08 15:10 | disposition home or self-care (01) | LOC: ER 10:38 → 4TH 12:57 | DX: N13.2 Hydronephrosis with renal and ureteral calculous obstruction (principal); N20.2 Calculus of kidney with calculus of ureter; M10.9 Gout, unspecified; E78.00 Pure hypercholesterolemia, unspecified; M19.91 Primary osteoarthritis, unspecified site; N28.9 Disorder of kidney and ureter, unspecified; F41.9 Anxiety disorder, unspecified; J30.2 Other seasonal allergic rhinitis; E66.01 Morbid (severe) obesity due to excess calories; Z68.38 Body mass index [BMI] 38.0-38.9, adult ==

== ENCOUNTER 2018-09-15 06:30 | Day surgery (SDC) | payer BC ==
[~2018-09-15] VITALS: Ht 177.8 cm; Wt 120.2 kg
[~2018-09-15 06:30] MED LIST changes: +ALLO100T PO; +KETO10TA PO; +OMEG-105 PO; +ONDA8TAB13 PO
--- OUTSIDE RECORDS SUMMARY | 2018-09-15 06:34 | XMS REPORT | Continuity of Care Document ---
Author Author [facility] Organization [facility] Address Unknown Phone Unavailable Allergies Active Description Code Type Severity Reaction Onset Reported/Identified Relationship to Patient Clinical Status Yes NO KNOWN DRUG ALLERGIES UNKNOWN NO KNOWN DRUG ALLERG Yes No Known Drug Allergies [id number] Drug Allergy Unknown N/A 07/13/2018 Medications There [...] UNSPECIFIED MOOD [AFFECTIVE] DISORDER 07/12/2018 DYANA, LARRY MOUNTER HAND Ot M54.5 LOW BACK PAIN 07/12/2018 DYANA, LARRY MOUNTER HAND Ot N20.9 URINARY CALCULUS, UNSPECIFIED 07/12/2018 DYANA, LARRY MOUNTER HAND Ot 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 07/14/2018 DYANA, LARRY MOUNTER HAND Ot M54.5 LOW BACK PAIN 07/14/2018 DYANA, LARRY MOUNTER HAND Ot N20.9 URINARY CALCULUS, UNSPECIFIED 07/14/2018 DYANA, LARRY MOUNTER HAND Ot Z79.82 MCC (CURRENT) USE OF ASPIRIN 07/14/2018 LEAHTHUY ESPOSITO MD, Ot I10 ESSENTIAL (PRIMARY) HYPERTENSION 07/14/2018 THUY LYNN MD Ot N20.2 CALCULUS OF KIDNEY WITH CALCULUS OF URET 07/14/2018 THUY LYNN MD Ot N40.0 BENIGN PROSTATIC HYPERPLASIA WITHOUT LOW 07/14/2018 THYU LYNN MD, Ot Z79.899 OTHER MCC (CURRENT) DRUG THERAPY 07/15/2018 THUY LYNN MD Ot I10 ESSENTIAL (PRIMARY) HYPERTENSION 07/15/2018 THUY LYNN MD Ot N20.2 CALCULUS OF KIDNEY WITH CALCULUS OF URET 07/15/2018 THUY LYNN MD Ot N40.0 BENIGN PROSTATIC HYPERPLASIA WITHOUT LOW 07/15/2018 THUY LYNN MD Ot Z79.899 OTHER MCC (CURRENT) DRUG THERAPY 07/15/2018 THUY LYNN MD Ot I10 ESSENTIAL (PRIMARY) HYPERTENSION 07/15/2018 THUY LYNN MD Ot N20.2 CALCULUS OF KIDNEY WITH CALCULUS OF URET 07/15/2018 THUY LYNN MD Ot N40.0 BENIGN PROSTATIC HYPERPLASIA WITHOUT LOW 07/15/2018 THUY LYNN MD, Ot Z79.899 OTHER MCC (CURRENT) DRUG THERAPY 07/28/2018 THUY LYNN MD Ot N20.2 CALCULUS OF KIDNEY WITH CALCULUS OF URET 07/28/2018 THUY LYNN MD Ot Z98.890 OTHER SPECIFIED POSTPROCEDURAL STATES 07/30/2018 THUY LYNN MD Ot K76.0 FATTY (CHANGE OF) LIVER, NOT ELSEWHERE C 07/30/2018 THUY LYNN MD, Ot N13.2 HYDRONEPHROSIS WITH RENAL AND URETERAL C 09/01/2018 THUY LYNN MD, Ot Z01.818 ENCOUNTER FOR OTHER PREPROCEDURAL EXAMIN 2018 THUY LYNN MD, Ot E78.5 HYPERLIPIDEMIA, UNSPECIFIED 2018 THUY LYNN MD, Ot F32.9 MAJOR DEPRESSIVE DISORDER, SINGLE EPISOD 2018 THUY LYNN MD, Ot I10 ESSENTIAL (PRIMARY) HYPERTENSION 2018 LEAH MD, THUY A Ot N20.0 CALCULUS OF KIDNEY 2018 THUY LYNN MD Ot N40.0 BENIGN PROSTATIC HYPERPLASIA WITHOUT LOW 2018 THUY LYNN MD Ot Z11.2 ENCOUNTER FOR SCREENING FOR OTHER BACTER 2018 THUY LYNN MD Ot Z79.899 OTHER MCC (CURRENT) DRUG THERAPY 2018 THUY LYNN MD Ot E78.5 HYPERLIPIDEMIA, UNSPECIFIED 2018 THUY LYNN MD Ot F32.9 MAJOR DEPRESSIVE DISORDER, SINGLE EPISOD 2018 THUY LYNN MD Ot I10 ESSENTIAL (PRIMARY) HYPERTENSION 2018 THUY LYNN MD Ot N20.0 CALCULUS OF KIDNEY 2018 THUY LYNN MD Ot N40.0 BENIGN PROSTATIC HYPERPLASIA WITHOUT LOW 2018 THUY LYNN MD Ot Z11.2 ENCOUNTER FOR SCREENING FOR OTHER BACTER 2018 THUY LYNN MD Ot Z79.899 OTHER MCC (CURRENT) DRUG THERAPY 09/07/2018 CJ GRUBBS APRN Ot E78.00 PURE HYPERCHOLESTEROLEMIA, UNSPECIFIED 09/07/2018 CJ GRUBBS HAND FINISHER Ot F41.9 ANXIETY DISORDER, UNSPECIFIED 09/07/2018 CJ GRUBBS HAND FINISHER Ot M10.9 GOUT, UNSPECIFIED 09/07/2018 CJ GRUBBS HAND FINISHER Ot N20.1 CALCULUS OF URETER 09/07/2018 CJ GRUBBS HAND FINISHER Ot R11.2 NAUSEA WITH VOMITING, UNSPECIFIED 09/07/2018 CJ GRUBBS HAND FINISHER Ot Z87.442 PERSONAL HISTORY OF URINARY CALCULI 09/07/2018 CJ GRUBBS HAND FINISHER Ot Z98.890 OTHER SPECIFIED POSTPROCEDURAL STATES 09/08/2018 THUY LYNN MD Ot E66.01 MORBID (SEVERE) OBESITY DUE TO EXCESS CA 09/08/2018 THUY LYNN MD Ot E78.00 PURE HYPERCHOLESTEROLEMIA, UNSPECIFIED 09/08/2018 THUY LYNN MD Ot F41.9 ANXIETY DISORDER, UNSPECIFIED 09/08/2018 THUY LYNN MD Ot J30.2 OTHER SEASONAL ALLERGIC RHINITIS 09/08/2018 THUY LYNN MD Ot M10.9 GOUT, UNSPECIFIED 09/08/2018 THUY LYNN MD Ot M19.91 PRIMARY OSTEOARTHRITIS, UNSPECIFIED SITE 09/08/2018 THUY LYNN MD Ot N13.2 HYDRONEPHROSIS WITH RENAL AND URETERAL C 09/08/2018 THUY LYNN MD, Ot N20.2 CALCULUS OF KIDNEY WITH CALCULUS OF URET 09/08/2018 THUY LYNN MD, Ot N28.9 DISORDER OF KIDNEY AND URETER, UNSPECIFI 09/08/2018 THUY LYNN MD Ot Z68.38 BODY MASS INDEX (BMI) 38.0-38.9, ADULT Procedures Code Description Performed By Performed On [id number] DILATION OF BILATERAL URETERS WITH INTRA 09/08/2018 [id number] FRAGMENTATION IN RIGHT KIDNEY PELVIS, EN 09/08/2018 [id number] FRAGMENTATION IN LEFT KIDNEY PELVIS, END 09/08/2018 [id number] FRAGMENTATION IN RIGHT URETER, ENDO 09/08/2018 [id number] FRAGMENTATION IN LEFT URETER, ENDO 09/08/2018 Results Test Result Range Thyroid Stimulating Hormone [...] Staphylococcus aureus (MRSA) screening culture NEG NRG Complete urinalysis with reflex to culture - 09/04/18 12:46 Urine color determination YELLOW NRG Urine clarity determination CLEAR NRG Urine pH measurement by test strip 7 5-9 Specific gravity of urine by test [...] count by microscopy (number/high power field ) RARE NRG Bacteria detection in urine sediment by light microscopy NEGATIVE NRG Squamous epithelial cells detection in urine sediment by light microscopy NONE NRG Crystals detection in urine sediment by light microscopy NONE NRG Casts detection in urine sediment by light microscopy NONE NRG Mucus detection in urine sediment by light microscopy NEGATIVE NRG Complete urinalysis with reflex to culture NO NRG Complete blood count (CBC) with automated white blood cell (WBC) differential - 09/04/18 12:50 Blood leukocytes automated count (number/volume) 10.9 10*3/uL 4.3-11.0 Blood erythrocytes automated count (number/volume) 4.95 10*6/uL 4.35-5.85 Venous blood hemoglobin measurement (mass/volume) 14.5 g/dL 13.3-17.7 Blood hematocrit (volume fraction) 41 % 40-54 Automated erythrocyte mean corpuscular volume 82 [foz_us] 80-99 Automated erythrocyte mean corpuscular hemoglobin (mass per erythrocyte) 29 pg 25-34 Automated erythrocyte mean corpuscular hemoglobin concentration measurement ( mass/volume) 36 g/dL 32-36 Automated erythrocyte distribution width ratio 13.0 % 10.0-14.5 Automated blood platelet count (count/volume) 257 10*3/uL 130-400 Automated blood platelet mean volume measurement 9.3 [foz_us] 7.4-10.4 Automated blood neutrophils/100 leukocytes 78 % 42-75 Automated blood lymphocytes/100 leukocytes 14 % 12-44 Blood monocytes/100 leukocytes 8 % 0-12 Automated blood eosinophils/100 leukocytes 0 % 0-10 Automated blood basophils/100 leukocytes 0 % 0-10 Blood neutrophils automated count (number/volume) 8.5 10*3 1.8-7.8 Blood lymphocytes automated count (number/volume) 1.5 10*3 1.0-4.0 Blood monocytes automated count (number/volume) 0.8 10*3 0.0-1.0 Automated eosinophil count 0.0 10*3/uL 0.0-0.3 Automated blood basophil count (count/volume) 0.0 10*3/uL 0.0-0.1 Comprehensive metabolic panel - 09/04/18 12:50 Serum or plasma sodium measurement (moles/volume) 138 mmol/L 135-145 Serum or plasma potassium measurement (moles/volume) 4.1 mmol/L 3.6-5.0 Serum or plasma chloride measurement (moles/volume) 101 mmol/L 98-107 Carbon dioxide 23 mmol/L 21-32 Serum or plasma anion gap determination (moles/volume) 14 mmol/L 5-14 Serum or plasma urea nitrogen measurement (mass/volume) 15 mg/dL 7-18 Serum or plasma creatinine measurement (mass/volume) 1.16 mg/dL 0.60-1.30 Serum or plasma urea nitrogen/creatinine mass ratio 13 NRG Serum or plasma creatinine measurement with calculation of estimated glomerular filtration rate > NRG Serum or plasma glucose measurement (mass/volume) 125 mg/dL 70-105 Serum or plasma calcium measurement (mass/volume) 9.4 mg/dL 8.5-10.1 Serum or plasma total bilirubin measurement (mass/volume) 1.1 mg/dL 0.1-1.0 Serum or plasma alkaline phosphatase measurement (enzymatic activity/volume) 67 U/L 40-136 Serum or plasma aspartate aminotransferase measurement (enzymatic activity/ volume) 64 U/L 5-34 Serum or plasma alanine aminotransferase measurement (enzymatic activity/volume ) 90 U/L 0-55 Serum or plasma protein measurement (mass/volume) 7.9 g/dL 6.4-8.2 Serum or plasma albumin measurement (mass/volume) 4.4 g/dL 3.2-4.5 CALCIUM CORRECTED 9.1 mg/dL 8.5-10.1 Complete urinalysis with reflex to culture - 09/06/18 11:00 Urine color determination CHARLY NRG Urine clarity determination CLEAR NRG Urine pH measurement by test strip 7 5-9 Specific gravity of urine by test strip 1.015 1.016- 1.022 Urine protein assay by test [...] NORMAL Urine leukocyte esterase detection by dipstick 2+ NEGATIVE Automated urine sediment erythrocyte count by microscopy (number/high power field) > [HPF] NRG Automated urine sediment leukocyte count by microscopy (number/high power field ) [HPF] NRG Bacteria detection in urine sediment by light microscopy TRACE NRG Squamous epithelial cells detection in urine sediment by light microscopy RARE NRG Crystals detection in urine sediment by light microscopy NONE NRG Casts detection in urine sediment by light microscopy NONE NRG Mucus detection in urine sediment by light microscopy SMALL NRG Complete urinalysis with reflex to culture YES NRG Complete blood count (CBC) with automated white blood cell (WBC) differential - 09/06/18 11:14 Blood leukocytes automated count (number/volume) 7.3 10*3/uL 4.3-11.0 Blood erythrocytes automated count (number/volume) 4.75 10*6/uL 4.35-5.85 Venous blood hemoglobin measurement (mass/volume) 13.7 g/dL 13.3-17.7 Blood hematocrit (volume fraction) 40 % 40-54 Automated erythrocyte mean corpuscular volume 84 [foz_us] 80-99 Automated erythrocyte mean corpuscular hemoglobin (mass per erythrocyte) 29 pg 25-34 Automated erythrocyte mean corpuscular hemoglobin concentration measurement ( mass/volume) 35 g/dL 32-36 Automated erythrocyte distribution width ratio 13.1 % 10.0-14.5 Automated blood platelet count (count/volume) 247 10*3/uL 130-400 Automated blood platelet mean volume measurement 8.8 [foz_us] 7.4-10.4 Automated blood neutrophils/100 leukocytes 65 % 42-75 Automated blood lymphocytes/100 leukocytes 23 % 12-44 Blood monocytes/100 leukocytes 10 % 0-12 Automated blood eosinophils/100 leukocytes 2 % 0-10 Automated blood basophils/100 leukocytes 0 % 0-10 Blood neutrophils automated count (number/volume) 4.7 10*3 1.8-7.8 Blood lymphocytes automated count (number/volume) 1.7 10*3 1.0-4.0 Blood monocytes automated count (number/volume) 0.7 10*3 0.0-1.0 Automated eosinophil count 0.1 10*3/uL 0.0-0.3 Automated blood basophil count (count/volume) 0.0 10*3/uL 0.0-0.1 Whole blood basic metabolic panel - 09/06/18 11:14 Serum or plasma sodium measurement (moles/volume) 139 mmol/L 135-145 Serum or plasma potassium measurement (moles/volume) 4.1 mmol/L 3.6-5.0 Serum or plasma chloride measurement (moles/volume) 100 mmol/L 98-107 Carbon dioxide 25 mmol/L 21-32 Serum or plasma anion gap determination (moles/volume) 14 mmol/L 5-14 Serum or plasma urea nitrogen measurement (mass/volume) 15 mg/dL 7-18 Serum or plasma creatinine measurement (mass/volume) 1.48 mg/dL 0.60-1.30 Serum or plasma urea nitrogen/creatinine mass ratio 10 NRG Serum or plasma creatinine measurement with calculation of estimated glomerular filtration rate 52 NRG Serum or plasma glucose measurement (mass/volume) 117 mg/dL 70-105 Serum or plasma calcium measurement (mass/volume) 9.8 mg/dL 8.5-10.1 Complete blood count (CBC) with automated white blood cell (WBC) differential - 09/07/18 05:46 Blood leukocytes automated count (number/volume) 7.6 10*3/uL 4.3-11.0 Blood erythrocytes automated count (number/volume) 4.14 10*6/uL 4.35-5.85 Venous blood hemoglobin measurement (mass/volume) 12.0 g/dL 13.3-17.7 Blood hematocrit (volume fraction) 35 % 40-54 Automated erythrocyte mean corpuscular volume 85 [foz_us] 80-99 Automated erythrocyte mean corpuscular hemoglobin (mass per erythrocyte) 29 pg 25-34 Automated erythrocyte mean corpuscular hemoglobin concentration measurement ( mass/volume) 34 g/dL 32-36 Automated erythrocyte distribution width ratio 13.1 % 10.0-14.5 Automated blood platelet count (count/volume) 244 10*3/uL 130-400 Automated blood platelet mean volume measurement 9.2 [foz_us] 7.4-10.4 Automated blood neutrophils/100 leukocytes 71 % 42-75 Automated blood lymphocytes/100 leukocytes 16 % 12-44 Blood monocytes/100 leukocytes 11 % 0-12 Automated blood eosinophils/100 leukocytes 2 % 0-10 Automated blood basophils/100 leukocytes 0 % 0-10 Blood neutrophils automated count (number/volume) 5.4 10*3 1.8-7.8 Blood lymphocytes automated count (number/volume) 1.2 10*3 1.0-4.0 Blood monocytes automated count (number/volume) 0.9 10*3 0.0-1.0 Automated eosinophil count 0.1 10*3/uL 0.0-0.3 Automated blood basophil count (count/volume) 0.0 10*3/uL 0.0-0.1 Whole blood basic metabolic panel - 09/07/18 05:46 Serum or plasma sodium measurement (moles/volume) 138 mmol/L 135-145 Serum or plasma potassium measurement (moles/volume) 4.2 mmol/L 3.6-5.0 Serum or plasma chloride measurement (moles/volume) 104 mmol/L 98-107 Carbon dioxide 22 mmol/L 21-32 Serum or plasma anion gap determination (moles/volume) 12 mmol/L 5-14 Serum or plasma urea nitrogen measurement (mass/volume) 14 mg/dL 7-18 Serum or plasma creatinine measurement (mass/volume) 1.38 mg/dL 0.60-1.30 Serum or plasma urea nitrogen/creatinine mass ratio 10 NRG Serum or plasma creatinine measurement with calculation of estimated glomerular filtration rate 57 NRG Serum or plasma glucose measurement (mass/volume) 123 mg/dL 70-105 Serum or plasma calcium measurement (mass/volume) 8.4 mg/dL 8.5-10.1 Serum or plasma uric acid measurement (mass/volume) - 09/07/18 05:46 Serum or plasma uric acid measurement (mass/volume) 7.8 mg/dL 2.6-7.2 Complete blood count (CBC) with automated white blood cell (WBC) differential - 09/08/18 06:00 Blood leukocytes automated count (number/volume) 9.2 10*3/uL 4.3-11.0 Blood erythrocytes automated count (number/volume) 4.35 10*6/uL 4.35-5.85 Venous blood hemoglobin measurement (mass/volume) 12.5 g/dL 13.3-17.7 Blood hematocrit (volume fraction) 37 % 40-54 Automated erythrocyte mean corpuscular volume 84 [foz_us] 80-99 Automated erythrocyte mean corpuscular hemoglobin (mass per erythrocyte) 29 pg 25-34 Automated erythrocyte mean corpuscular hemoglobin concentration measurement ( mass/volume) 34 g/dL 32-36 Automated erythrocyte distribution width ratio 12.8 % 10.0-14.5 Automated blood platelet count (count/volume) 227 10*3/uL 130-400 Automated blood platelet mean volume measurement 8.9 [foz_us] 7.4-10.4 Automated blood neutrophils/100 leukocytes 74 % 42-75 Automated blood lymphocytes/100 leukocytes 12 % 12-44 Blood monocytes/100 leukocytes 12 % 0-12 Automated blood eosinophils/100 leukocytes 2 % 0-10 Automated blood basophils/100 leukocytes 0 % 0-10 Blood neutrophils automated count (number/volume) 6.8 10*3 1.8-7.8 Blood lymphocytes automated count (number/volume) 1.1 10*3 1.0-4.0 Blood monocytes automated count (number/volume) 1.1 10*3 0.0-1.0 Automated eosinophil count 0.2 10*3/uL 0.0-0.3 Automated blood basophil count (count/volume) 0.0 10*3/uL 0.0-0.1 Whole blood basic metabolic panel - 09/08/18 06:00 Serum or plasma sodium measurement (moles/volume) 136 mmol/L 135-145 Serum or plasma potassium measurement (moles/volume) 4.2 mmol/L 3.6-5.0 Serum or plasma chloride measurement (moles/volume) 104 mmol/L 98-107 Carbon dioxide 21 mmol/L 21-32 Serum or plasma anion gap determination (moles/volume) 11 mmol/L 5-14 Serum or plasma urea nitrogen measurement (mass/volume) 15 mg/dL 7-18 Serum or plasma creatinine measurement (mass/volume) 1.47 mg/dL 0.60-1.30 Serum or plasma urea nitrogen/creatinine mass ratio 10 NRG Serum or plasma creatinine measurement with calculation of estimated glomerular filtration rate 53 NRG Serum or plasma glucose measurement (mass/volume) 128 mg/dL 70-105 Serum or plasma calcium measurement (mass/volume) 8.7 mg/dL 8.5-10.1 Encounters ACCT No. Visit Date/Time Discharge Status Pt. Type Provider Facility Loc./Unit Complaint [id number] 09/06/2018 12:57:00 09/08/2018 15:10:00 DIS Inpatient LEAH ELLIS, THUY [facility] 4TH ACUTE RENAL INSUFFCIENCY, BILATERAL URETERAL STONES [id number] 09/04/2018 12:36:00 09/04/2018 14:30:00 DIS Outpatient CJ GRUBBS APRN [facility] ER RIGHT FLANK PAIN [id number] 09/02/2018 06:04:00 09/02/2018 09:55:00 [facility] [id number] 09/01/2018 06:30:00 09/01/2018 12:11:00 DIS Outpatient THUY LYNN MD [facility] PREOP BILATERAL RENAL STONE [id number] 07/27/2018 14:14:00 07/27/2018 23:59:59 CLS Outpatient THUY LYNN MD [facility] RAD URETERAL STONE [id number] 07/14/2018 08:27:00 07/14/2018 13:20:00 DIS [facility] [id number] 07/13/2018 09:51:00 07/13/2018 23:59:59 CLS Outpatient THUY LYNN MD [facility] RAD HISTORY OF STONES/UTI [id number] 07/13/2018 14:54:00 07/13/2018 15:22:00 DIS Outpatient THUY LYNN MD [facility] PREOP LEFT PROXIMAL URETERAL STONE [id number] 07/12/2018 12:53:00 07/12/2018 15:22:00 DIS Emergency LARRY TURPIN [facility] ER KIDNEY STONES [id number] 03/25/2014 16:23:00 03/25/2014 18:50:00 DIS Emergency MAITE CHAVEZ [facility] ER POSS SURGICAL INFECTION ON L LEG [id number] 06/17/2012 10:04:00 06/17/2012 23:59:59 CLS Outpatient [id number] 11/29/2017 10:44:00 11/29/2017 23:59:00 DIS Outpatient Louise Sorenson [id number] 11/29/2017 10:39:00 11/29/2017 23:59:00 DIS Outpatient Louise Sorenson
[2018-09-15 06:45] VITALS: BP 152/100
[2018-09-15] MEDS ORDERED: cefTRIAXone FOR IV USE 1,000 MG in NS (IVPB) 50 ML IV ONE (06:45)
[2018-09-15] MEDS ORDERED: CATHETER FLUSH 10 ML SYR IV PRN (06:45)
[2018-09-15] MEDS ORDERED: LIDOCAINE PF 2% 5 ML (XYLOCAINE) VIAL ONE (06:53)
[2018-09-15] MEDS ORDERED: ONDANSETRON 4 MG/2 ML (SDV) Z0FRAN ONE (06:53)
[2018-09-15] MEDS ORDERED: proPOfol 200 MG/20 ML (DIPRIVAN) VIAL IV ONE (06:53)
[2018-09-15] MEDS ORDERED: fentaNYL INJECTION 100 MCG/2 ML AMP ONE (06:53)
[2018-09-15] MEDS ORDERED: MIDAZOLAM 2 MG/2 ML (VERSED) VIAL ONE (06:54)
[2018-09-15] MEDS ORDERED: FUROSEMIDE 40 MG/4 ML INJ (LASIX) ONE (06:54)
[2018-09-15] MEDS ORDERED: KETOROLAC 30 MG/ML VIAL ONE (06:54)
[2018-09-15] MEDS ORDERED: SEVOFLURANE (ULTANE) 15 ML INHAL SOLN ONE ×5 (06:54→08:22)
[2018-09-15] MEDS ORDERED: DEXAMETHASONE 10 MG/ML (DECADRON) 1 ML VIAL ONE (06:54)
[2018-09-15] MEDS: LACTATED RINGERS 1,000 ML IV PRN ×2 (07:05→08:30)
--- NOTE | 2018-09-15 07:17 | Progress Note-Pre Operative ---
Pre-Operative Progress Note H&P Reviewed The H&P was reviewed, patient examined and no changes noted. Date Seen by Provider: Sep 15, 2018 Time Seen by Provider: 07:17 Date H&P Reviewed: Sep 15, 2018 Time H&P Reviewed: 07:17 Pre-Operative Diagnosis: BILATERAL URETERAL AND RENAL STONES THUY LYNN MD Sep 15, 2018 07:17
--- NOTE | 2018-09-15 07:29 | Progress Note-Post Operative ---
Post-Operative Progess Note Surgeon (s)/Azure Developer (s) Surgeon THUY LYNN MD Azure Developer: NONE Pre-Operative Diagnosis BILATERAL URETERAL AND RENAL STONES Post-Operative Diagnosis SAME Procedure & Operative Findings Date of Procedure 09/15/18 Procedure Performed/Findings BILATERAL ESWL AND CYSTOSCOPY WITH REMOVAL OF STENTS Anesthesia Type GENERAL Estimated Blood Loss Estimated blood loss (mL): NONE Specimens/Packing Specimens Removed NONE TO PATHOLOGY Packing: NONE THUY LYNN MD Sep 15, 2018 07:29
--- NOTE | 2018-09-15 07:31 | Discharge Inst-Urology ---
Discharge Inst-Urology Discharge Medications New, Converted, or Re-newed RX: RX on Chart Patient Instructions/Follow Up Plan Please make appointment to been seen in office next Friday, KU prior to it. KUB on way home Post ESWL instructions Increase oral fluids for 48 hours and then as needed. Diet and Activity as tolerated. If questions or concerns contact your physician Or seek help at emergency department. THUY LYNN MD Sep 15, 2018 07:31
--- NOTE | 2018-09-15 07:32 | Diagnostic Imaging Report ---
Indication: Preop assessment for lithotripsy. Comparison: 09/14/2018. Findings: Stable position of bilateral nephroureteral stents. Mineralized foci are present adjacent to the superior aspect of both nephroureteral stents, on the left measuring 6 mm and on the right measuring approximately 5 mm. Mineralization along the inferior aspect of the right ureteral stent may be phleboliths and are stable. Stable regional skeleton. Nonobstructive bowel gas pattern. Impression: Stable exam with bilateral proximal ureteral stones and nephroureteral stents in place. Dictated by: Dictated on workstation # [id number]
[2018-09-15] MEDS ORDERED: PROMETHAZINE INJ 25 MG/ML (PHENERGAN) AMP IVP ONE (09:00)
[2018-09-15] MEDS ORDERED: MEPERIDINE (DEMEROL) INJ 50 MG/ML IVP ONE (09:00)
[2018-09-15] MEDS ORDERED: HYDROmorphone 2 MG/ML VIAL (DILAUDID) IV ONE (09:00)
[2018-09-15] MEDS ORDERED: ONDANSETRON 4 MG/2 ML (SDV) Z0FRAN IVP PRN (09:00)
[2018-09-15] MEDS ORDERED: morphine INJ 10 MG/ML 1ML (SYR OR VIAL) IVP ONE (09:00)
[2018-09-15 09:50] VITALS: BP 144/100
[2018-09-15 09:55] VITALS: BP 144/100
[2018-09-15] MEDS ORDERED: CIPR-225 PO (10:05)
--- NOTE | 2018-09-15 10:19 | Anesthesia-General Post-Op ---
General Patient Condition Mental Status/LOC: Same as Preop Cardiovascular: Satisfactory Nausea/Vomiting: Absent Respiratory: Satisfactory Pain: Controlled Complications: Absent Post Op Complications Complications None Follow Up Care/Instructions Patient Instructions None needed. Anesthesia/Patient Condition Patient Condition Patient is doing well, no complaints, stable vital signs, no apparent adverse anesthesia problems. No complications reported per nursing. NABIL MEEK CRNA Sep 15, 2018 10:19
[2018-09-15 10:20] VITALS: BP 138/93
--- NOTE | 2018-09-15 12:00 | Diagnostic Imaging Report ---
INDICATION: Status post lithotripsy. COMPARISON: 09/15/2018 at 7:14 AM. FINDINGS: The bilateral nephroureteral stents have been removed. The previously noted mineralization in the proximal ureters are no longer visualized. Hyperdensities seen in the right upper quadrant appear to be within the lumen of the colon. Normal regional skeleton. Cholecystectomy. IMPRESSION: 1. The bilateral nephroureteral stents have been removed. 2. The proximal ureteral stones are no longer appreciated. Dictated by: Dictated on workstation # [id number]
--- NOTE | 2018-09-15 12:11 | OPERATIVE REPORT ---
DATE OF SERVICE: 09/15/2018 PREOPERATIVE DIAGNOSIS: Bilateral proximal ureteral and renal stones. POSTOPERATIVE DIAGNOSIS: Bilateral proximal ureteral and renal stones. OPERATION PERFORMED: Bilateral ESWL and cystoscopy with removal of bilateral stents. SURGEON: Desmond Lynn MD. ANESTHESIA: General. COMPLICATIONS: None. DESCRIPTION OF PROCEDURE: Under satisfactory general anesthesia, the patient in supine position, the right proximal ureteral stone was localized. Shocks were delivered and 2000 shocks completely fragmented the stone that was not visible anymore. Then, attention was directed to the lower pole stones and 1000 shocks were enough to fragment them completely. Then, attention was directed to the left side, which the proximal ureteral stone was localized. Shocks were delivered and 1500 shocks were enough to completely fragment the stone. Then another 1000 to the lower pole stones as well. Then, the genitalia were prepped and draped in usual sterile fashion. Flexible cystoscope was introduced into the bladder; however, the bladder was full and removed bluntly, which made visibility with the flexible scope not possible, so we put the patient in lithotomy position, inserted a [place] cystoscope and extracted, both stents were grasped with forceps intact. The patient tolerated the procedure and anesthesia well and was sent to recovery room in stable condition after receiving 30 mg of Toradol and 40 mg of Lasix IV. Job ID: [id number] DocumentID: [id number] Dictated Date: 09/15/2018 09:25:31 Chain Maker Loom Control Date: 09/15/2018 12:11:01 Dictated By: DESMOND LYNN MD
== END 2018-09-15 10:45 | disposition home or self-care (01) ==
LOC: SDC 06:30
PROVIDERS: ATTEND Urology
DX: N20.2 Calculus of kidney with calculus of ureter (principal); I10 Essential (primary) hypertension; Z79.899 Other long term (current) drug therapy
CPT/HCPCS: 74018; 87081

== ENCOUNTER → 2018-09-22 | Outpatient (CLI) | payer BC ==
--- NOTE | 2018-09-23 08:18 | Diagnostic Imaging Report ---
EXAMINATION: Supine abdomen at 02:10 p.m. INDICATION: Nephrolithiasis. FINDINGS: On the prior exam of 09/15/2018, there were hyperdensities overlying the colon. Those findings are not as conspicuous on this exam. There is still a small area of increased density overlying the mid portion of the descending colon. There also appears to be a small calcification overlying the inferior pole of the left kidney and a few minute calcifications overlying the inferior pole of the right kidney. The recent CT abdomen/pelvis exam of 09/06/2018 did note nonobstructing calculi within both kidneys. As noted on the prior exam, there are number of small calcific densities low in the pelvis on the right. No other abnormality is identified. IMPRESSION: The nonobstructing calculi within both kidneys seen on the recent CT exam are partially visualized on this exam. There is no acute abnormality evident. Dictated by: Dictated on workstation # [id number]
== END ==
LOC: RAD 13:57
PROVIDERS: ATTEND Urology
DX: N20.2 Calculus of kidney with calculus of ureter (principal)
CPT/HCPCS: 74018

== ENCOUNTER 2018-10-06 15:19 | Outpatient (RCR) | payer BC | END 2019-01-04 | disposition home or self-care (01) | LOC: LAB 15:19 | PROVIDERS: ATTEND Urology | DX: N20.0 Calculus of kidney (principal) | CPT/HCPCS: 88300 ==

== ENCOUNTER → 2019-01-29 | Outpatient (CLI) | payer BC ==
--- NOTE | 2019-01-29 21:25 | Diagnostic Imaging Report ---
PROCEDURE: MRI left joint lower extremity without contrast. TECHNIQUE: Multiplanar, multisequence non contrast-enhanced MRI of the left lower extremity was accomplished. INDICATION: Knee pain. There are no prior MRI examinations available for comparison. FINDINGS: This exam is of limited diagnostic value due to motion artifact on multiple sequences. The patient has had a prior anterior cruciate ligament repair. The ACL may be partially torn. The posterior cruciate ligament is not well visualized and I suspect that it is at least partially torn. The quadriceps and infrapatellar tendons are intact. There does appear to be a partial tear of the medial collateral ligament as it courses by the medial femoral condyle. The fibular collateral ligament, the iliotibial band and the biceps femoris tendon are intact. The anterior horn of the lateral meniscus is torn. There is also most likely a small partial tear of the midportion of the medial meniscus. There does appear to be bone edema involving the lateral aspect of lateral femoral condyle. There is no acute bony abnormality noted otherwise. There is at least moderate joint effusion. There is also generalized soft tissue edema about the knee joint. IMPRESSION: 1. This exam is of limited value due to motion artifact. There does appear to be a partial tear of the reconstructed anterior cruciate ligament. The posterior cruciate ligament is also at least partially torn. A small partial tear of the medial collateral ligament is noted as well. The anterior horn of the lateral meniscus and the midportion of medial meniscus also felt to be torn. 2. The other major ligaments and tendons are intact. 3. There is bone edema involving the lateral aspect of lateral femoral condyle. 4. There is a joint effusion present as well as generalized soft tissue edema about the knee joint. Dictated by: Dictated on workstation # [id number]
== END ==
LOC: RAD 16:03
PROVIDERS: ATTEND Nurse Practitioner
DX: S83.522A Sprain of posterior cruciate ligament of left knee, initial encounter (principal); S83.412A Sprain of medial collateral ligament of left knee, initial encounter; S83.282A Other tear of lateral meniscus, current injury, left knee, initial encounter; M89.9 Disorder of bone, unspecified
CPT/HCPCS: 73721

== ENCOUNTER 2021-07-13 10:56 | Day surgery (SDC) | payer BC ==
[~2021-07-13] VITALS: Ht 177.8 cm; Wt 103.0 kg
[2021-07-13] VITALS (10 sets, daily range): BP systolic 138–178; BP diastolic 77–98
[~2021-07-13 10:56] MED LIST changes: -OMEG-105 PO; +OMEG-218 PO; +SERT-413 PO; -SERT50TA9 PO; -TAMS0.4C98 PO; +TMSL.4C PO
[2021-07-13] MEDS ORDERED: LACTATED RINGERS 1,000 ML IV PRN (11:15)
[2021-07-13] MEDS ORDERED: cefTRIAXone 1 GM PRE-MIX 50 ML IV ONE (11:34)
[2021-07-13] MEDS ORDERED: proPOfol 200 MG/20 ML (DIPRIVAN) VIAL IV ONE ×2 (11:44→12:38)
[2021-07-13] MEDS ORDERED: ONDANSETRON 4 MG/2 ML (SDV) Z0FRAN ONE (11:44)
[2021-07-13] MEDS ORDERED: LIDOCAINE PF 2% 5 ML (XYLOCAINE) VIAL ONE (11:44)
[2021-07-13] MEDS ORDERED: fentaNYL INJ 100 MCG/2 ML AMP ONE ×2 (11:44→12:21)
[2021-07-13] MEDS ORDERED: SEVOFLURANE (ULTANE) 15 ML INHAL SOLN ONE (11:44)
[2021-07-13] MEDS ORDERED: MIDAZOLAM 2 MG/2 ML (VERSED) VIAL ONE (11:44)
[2021-07-13] MEDS ORDERED: ROCURONIUM 10 MG/ML 5 ML SYRINGE IV ONE (11:44)
--- NOTE | 2021-07-13 11:52 | Progress Note-Pre Operative ---
Pre-Operative Progress Note H&P Reviewed The H&P was reviewed, patient examined and no changes noted. Date Seen by Provider: Jul 13, 2021 Time Seen by Provider: 11:52 Date H&P Reviewed: Jul 13, 2021 Time H&P Reviewed: 11:52 Pre-Operative Diagnosis: LT DISTAL URETERAL STONES THUY LYNN MD Jul 13, 2021 11:52
--- NOTE | 2021-07-13 11:52 | Diagnostic Imaging Report ---
CLINICAL INDICATIONS: Patient with left-sided stone. EXAM: X-ray abdomen supine view. COMPARISON: X-ray of the abdomen dated 09/22/2018. CT scan of abdomen and pelvis without contrast dated 09/06/2018. FINDINGS AND IMPRESSION: 1: There is a roughly 8 mm calcification overlying the mid left medial aspect of the low pelvis which was not seen on the prior x-ray. There are 2 closely adjacent calcifications seen in the mid slightly lateral left pelvis region which overlies expected region of the left ureter. Both of these above described calcifications are not seen on the prior x-ray. These are concerning for possible stones in the distal left ureter. CT scan of abdomen and pelvis is suggested for further evaluation. 2: Phleboliths are seen in the right pelvis. 3: Surgical clips are seen overlying the right upper quadrant which could be related to cholecystectomy changes. 4: Nonobstructive bowel gas pattern. There are small spurs involving lumbar spine. Dictated by: Dictated on workstation # [id number]
--- NOTE | 2021-07-13 11:53 | Progress Note-Post Operative ---
Post-Operative Progess Note Surgeon (s)/Drum Handler (s) Surgeon THUY LYNN MD Drum Handler: CLAUDINE Pre-Operative Diagnosis LT DISTAL URETERAL STONES Post-Operative Diagnosis SAME Procedure & Operative Findings Date of Procedure 07/13/21 Procedure Performed/Findings LT URETEROSCOPY WITH STONE LITHOTRIPSY Anesthesia Type GENERAL Estimated Blood Loss Estimated blood loss (mL): NONE Specimens/Packing Specimens Removed NONE Packing: NONE THUY LYNN MD Jul 13, 2021 11:53
--- NOTE | 2021-07-13 11:54 | Discharge Inst-Urology ---
Discharge Inst-Urology Reconcile Patient Problems Problems Reviewed?: Yes Final Diagnosis LT DISTAL URETERAL STONES Patient Instructions/Follow Up Plan/Assessment/Instructions Please make appointment to been seen in office in 2 weeks. KUB prior to it Strain all urines KUB on the way home Increase oral fluids for 48 hours and then as needed. Diet and Activity as tolerated. If questions or concerns contact your physician Or seek help at emergency department. THUY LYNN MD Jul 13, 2021 11:54
--- NOTE | 2021-07-13 12:53 | Anesthesia-General Post-Op ---
General Patient Condition Mental Status/LOC: Same as Preop Cardiovascular: Satisfactory Nausea/Vomiting: Absent Respiratory: Satisfactory Pain: Controlled Complications: Absent Post Op Complications Complications None Follow Up Care/Instructions Patient Instructions None needed. Anesthesia/Patient Condition Patient Condition Patient is doing well, no complaints, stable vital signs, no apparent adverse anesthesia problems. No complications reported per nursing. LAURA AUSTIN CRNA Jul 13, 2021 12:53
[2021-07-13] MEDS ORDERED: ONDANSETRON 4 MG/2 ML (SDV) Z0FRAN IVP PRN (13:00)
[2021-07-13] MEDS ORDERED: morphine INJ 10 MG/ML 1ML (SYR OR VIAL) IVP ONE (13:00)
--- NOTE | 2021-07-13 14:33 | Diagnostic Imaging Report ---
INDICATION: Cystogram. Renal calculus. COMPARISON: None Total fluoroscopy time: 7 seconds Total number of fluoroscopic images saved: 1 FINDINGS: Intraoperative image intensifier view of the pelvis was obtained during cystogram. Please note, interpreting radiologist was not present during the procedure. IMPRESSION: 1. Fluoroscopic guidance provided during cystogram. Dictated by: Dictated on workstation # [id number]
--- NOTE | 2021-07-13 19:26 | OPERATIVE REPORT ---
DATE OF SERVICE: 07/13/2021 PREOPERATIVE DIAGNOSIS: Left distal ureteral stones, "two". POSTOPERATIVE DIAGNOSIS: Left distal ureteral stones, "two". OPERATION PERFORMED: Left ureteroscopy with stone lithotripsy. SURGEON: Desmond Lynn MD. ANESTHESIA: General. COMPLICATIONS: None. DESCRIPTION OF PROCEDURE: Under satisfactory general anesthesia and the patient in lithotomy position, genitalia were prepped and draped in the usual sterile fashion. The anterior urethra was normal. The prostate was nonobstructing. The bladder neck was open. Bladder was normal with no foreign body or stones. The only abnormality was that the left ureteral orifice and intramural portions were pulled somewhat upward and laterally with some swelling in the intermural portion, where the first stone was impacted. I dilated the left ureteral orifice to accommodate a 6.9 Slovak semi-rigid ureteroscope, visualized the first stone, was impacted in the intramural portion. I was able to break it up and disimpacted and fragmented it completely. This allowed me to get to the second more proximal stone and deal with it similarly. There were no stones proximal to that proven by the ureteroscope. The fragments were all small and easily passable. I removed the ureteroscope, reinserted the cystoscope to empty the bladder. The patient tolerated the procedure and anesthesia well and was sent to recovery room in a stable condition after receiving 40 mg of Lasix and 30 mg of Toradol IV. Job ID: [id number] DocumentID: [id number] Dictated Date: 07/13/2021 12:54:08 Roving Department End Finder Date: 07/13/2021 19:25:12 Dictated By: DESMOND LYNN MD
== END 2021-07-13 15:04 ==
LOC: SDC 10:56
PROVIDERS: ATTEND Urology
DX: N13.2 Hydronephrosis with renal and ureteral calculous obstruction (principal); R03.0 Elevated blood-pressure reading, without diagnosis of hypertension; F32.A Depression, unspecified; Z79.899 Other long term (current) drug therapy; Z79.891 Long term (current) use of opiate analgesic
CPT/HCPCS: 74018; 76000; 82947; 87081

== ENCOUNTER → 2021-07-24 | Outpatient (CLI) | payer BC ==
--- NOTE | 2021-07-24 14:54 | Diagnostic Imaging Report ---
EXAMINATION: Abdomen 1 view HISTORY: Left ureteral stone COMPARISON: 07/13/2021 FINDINGS: The left pelvic calcifications seen on the prior exam have resolved. Phleboliths are seen in the right pelvis. No dilated bowel is seen. No free air. Cholecystectomy clips are present. IMPRESSION: 1. Calcifications projecting in the distal left ureter have resolved. Dictated by: Dictated on workstation # [id number]
== END ==
LOC: RAD 10:56
PROVIDERS: ATTEND Urology
DX: N20.1 Calculus of ureter (principal)
CPT/HCPCS: 74018

== ENCOUNTER 2021-11-23 08:38 | Emergency (ER) | payer OTHER, BC ==
[~2021-11-23] VITALS: Ht 180 cm; Wt 104.0 kg
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
[2021-11-23] MEDS ORDERED: fentaNYL INJ 100 MCG/2 ML AMP IVP ONE (09:15)
[2021-11-23] MEDS ORDERED: CATHETER FLUSH 10 ML SYR IV PRN (09:15)
[2021-11-23] MEDS ORDERED: IOHEXOL 350 MG/ML 100 ML (OMNIPAQUE 350) VIAL IV ONE (09:15)
[2021-11-23] MEDS ORDERED: NS 100 ML (IVPB) BAG IV ONE (09:15)
[2021-11-23] MEDS ORDERED: HOLD METFORMIN - RECEIVED CONTRAST 20 ML VIAL IV SCH (09:15)
[2021-11-23 09:35] LABS: BASOPHILS % (AUTO) 0 % (0-10); EOSINOPHILS # (AUTO) 0.1 10^3/uL (0.0-0.3); EOSINOPHILS % (AUTO) 1 % (0-10); HEMATOCRIT 44 % (40-54); HEMOGLOBIN 15.5 g/dL (13.3-17.7); LYMPHOCYTES # (AUTO) 0.9 10^3/uL (1.0-4.0); LYMPHOCYTES % (AUTO) 10 % (12-44); MEAN CORPUSCULAR HEMOGLOBIN 30 pg (25-34); MEAN CORPUSCULAR HGB CONC 35 g/dL (32-36); MEAN CORPUSCULAR VOLUME 84 fL (80-99); MEAN PLATELET VOLUME 9.1 fL (9.0-12.2); MONOCYTES # (AUTO) 0.3 10^3/uL (0.0-1.0); MONOCYTES % (AUTO) 3 % (0-12); NEUTROPHILS # (AUTO) 7.2 10^3/uL (1.8-7.8); NEUTROPHILS % (AUTO) 85 % (42-75); PLATELET COUNT 199 10^3/uL (130-400); WHITE BLOOD COUNT 8.5 10^3/uL (4.3-11.0)
[2021-11-23 09:43] LABS: ALBUMIN 4.3 GM/DL (3.2-4.5)
[2021-11-23 09:44] LABS: CHLORIDE 101 MMOL/L (98-107); POTASSIUM 3.8 MMOL/L (3.6-5.0); SODIUM 138 MMOL/L (135-145)
[2021-11-23 09:45] LABS: CALCIUM 9.6 MG/DL (8.5-10.1)
[2021-11-23 09:46] LABS: GLUCOSE 193 MG/DL (70-105); TOTAL PROTEIN 7.5 GM/DL (6.4-8.2)
[2021-11-23 09:47] LABS: CARBON DIOXIDE 21 MMOL/L (21-32)
[2021-11-23 09:48] LABS: BILIRUBIN,TOTAL 1.9 MG/DL (0.1-1.0)
[2021-11-23 09:49] LABS: ALKALINE PHOSPHATASE 88 U/L (40-136); GFR ESTIMATED 107
[2021-11-23 09:50] LABS: BUN/CREATININE RATIO 18
[2021-11-23 09:52] LABS: ALANINE AMINOTRANSFERASE 29 U/L (0-55)
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
[2021-11-23] MEDS ORDERED: KETOROLAC 30 MG/ML VIAL IVP ONE (11:00)
[2021-11-23 11:14] VITALS: BP 137/79
== END 2021-11-23 11:14 | disposition home or self-care (01) ==
LOC: EDUNIT# 08:38 → ER 08:39
DX: R07.89 Other chest pain (principal)
CPT/HCPCS: 36415; 71260; 74160; 80053; 84484; 85025